=== PATIENT | male | born 1935 | race Caucasian/White ===

== ENCOUNTER 2022-09-05 12:17 | Inpatient (IN) | payer MEDICARE, MEDICAID, SELFPAY ==
--- NOTE | 2022-09-05 | ECG_ITS ---
Test Reason : afib Blood Pressure : / mmHG Vent. Rate : 134 BPM Atrial Rate : 000 BPM P-R Int : 000 ms QRS Dur : 078 ms QT Int : 304 ms P-R-T Axes : 000 053 -53 degrees QTc Int : 453 ms Atrial fibrillation with rapid ventricular response ST depression, consider subendocardial injury Nonspecific T wave abnormality Abnormal ECG When compared with ECG of 05-SEP-2022 13:58, Atrial fibrillation has replaced Sinus rhythm ST now depressed in Inferior leads ST now depressed in Lateral leads Nonspecific T wave abnormality now evident in Lateral leads Referred By: Mark Tuttle Electronically Signed By:BI ROGEL MD
--- NOTE | ~2022-09-05 | XR_ITS ---
EXAMINATION: XR CHEST CLINICAL INFORMATION: Worsening shortness of breath. COMPARISON: None TECHNIQUE: Frontal view of the chest was obtained. FINDINGS: Mild patchy opacities are seen in the right mid and lower lung irizarry. The left lung is clear. The heart and mediastinal structures are unremarkable. XR/XR chest 1V IMPRESSION: Right mid and lower lung infiltrates.
[2022-09-05 12:24] VITALS: BP 136/90; PULSE 100; O2SAT 93
--- NOTE | 2022-09-05 12:36 | ECG_ITS ---
Test Reason : WEAKNESS Blood Pressure : / mmHG Vent. Rate : 095 BPM Atrial Rate : 095 BPM P-R Int : 116 ms QRS Dur : 070 ms QT Int : 356 ms P-R-T Axes : 080 043 031 degrees QTc Int : 447 ms Normal sinus rhythm Nonspecific ST and T wave abnormality Abnormal ECG No previous ECGs available Referred By: Sandie Merrill Electronically Signed By:
--- NOTE | 2022-09-05 12:38 | ED_ITS ---
HPI - General Adult General Chief complaint: General Medical Stated complaint: SOB 84% RA,HOT TO TOUCH PER EMS Source: EMS Mode of arrival: EMS Limitations: other (Dementia) History of Present Illness HPI narrative: Patient comes to the emergency rooms [facility] via ambulance. Staff reports that the patient has been having fever, worsening shortness of breath. Patient tested positive for COVID 8 days ago, and subsequently developed pneumonia. Since yesterday, patient has been taking ceftriaxone, azithromycin and dexamethasone. Today, patient's oxygen saturation was 84%. Patient seems to be more combative than usual. Patient is on nasal cannula because of the pneumonia. However, patient keeps pulling his off O2 off. Patient is unable to give any history due to dementia. Related Data Home Medications Medication Instructions Recorded Confirmed acetaminophen 325 mg tablet 325 mg PO TID PRN Pain 09/05/22 09/05/22 amlodipine 2.5 mg tablet 2.5 mg PO DAILY 09/05/22 09/05/22 azithromycin 250 mg tablet 250 mg PO DAILY 09/05/22 09/05/22 bisacodyl 10 mg rectal suppository 10 mg GA 1XD PRN Constipation 09/05/22 09/05/22 (Dulcolax (bisacodyl)) ceftriaxone 1 gram solution for 1 g IM DAILY 09/05/22 09/05/22 injection cholecalciferol (vitamin D3) 50 50 mcg PO DAILY 09/05/22 09/05/22 mcg (2,000 unit) capsule (Vitamin D3) dexamethasone 2 mg tablet 5 mg PO 1XD PRN Shortness Of Breath 09/05/22 09/05/22 emollient combination no.114 1 appl topical TID PRN Dry Skin 09/05/22 09/05/22 magnesium hydroxide 400 mg/5 mL 2,400 mg PO DAILY PRN Constipation 09/05/22 09/05/22 oral suspension (Milk of Magnesia) melatonin 3 mg tablet 3 mg PO BEDTIME PRN Insomnia 09/05/22 09/05/22 sodium phosphates 19 gram-7 118 ml GA DAILY PRN Constipation 09/05/22 09/05/22 gram/118 mL enema (Fleet Enema) thiamine HCl (vitamin B1) 100 mg 100 mg PO DAILY 09/05/22 09/05/22 tablet Allergies Allergy/AdvReac Type Severity Reaction Status Date / Time Unable to Assess Allergy Verified 09/05/22 12:32 Review of Systems Review of Systems: Yes Unobtainable due to mental condition PMFSH Past Medical History Medical History CKD (chronic kidney disease), stage I COPD (chronic obstructive pulmonary disease) Dementia Hyperlipidemia Social History Social History Advance Directives: Yes Advance Directives on File: Yes Advance Directives Date on File: 09/05/22 Physical Exam ED Vital Signs: Vital Signs - 24 hr 09/05/22 12:49 Temperature 99.1 F Pulse Rate 101 H Respiratory Rate 22 H Blood Pressure 125/72 Pulse Oximetry 86 L Oxygen Delivery Method Room Air BMI result Body Mass Index 16.8 Const Other: Appearance: Alert. Oriented X1. No acute distress. Eyes: Pupils equal, round and reactive to light. ENT: Pharynx normal. Neck: Normal inspection. Neck supple. No lymph nodes noted. No crepitus CVS: Normal heart rate and rhythm. Pulses normal. Normal S1 and S2 Respiratory: No respiratory distress. Breath sounds normal. No Wheezing. No rales Abdomen: Soft and nontender. No rigidity. No distention. Skin: Skin warm and dry. Normal skin color. Normal skin turgor. Extremities: No lower extremity edema. No Lacerations. No Rash Neuro: Oriented X 1. No motor deficit. No sensory deficit. Moving all extremities. No slurred speech. CN 2 through 12 grossly intact Psych: calm, slightly combative but redirectable Course Course Course Narrative: Patient has been on ceftriaxone azithromycin, [facility]. However, seems that they have a hard time keeping his nasal cannula on. Of patient's labs are pending. Patient is a full code per MOLDS form. Patient's white blood cell count is 21.5, likely secondary to daily dexamethasone use. Lactic acid 1.3. No fever, normal blood pressure, sepsis not suspected. Patient's sodium is 160. When patient arrived, he looked very dry, labs were not available, he received 2 L of normal saline, now changed to D5W at 50 mL/hour. Creatinine 1.65 likely secondary to dehydration. Troponin slightly bumped at 41.6, patient does not seem to have any chest pain, patient is poor historian, there are nonspecific ST depressions in leads V4 through V6, less than 1 mm, nonspecific, ACS not suspected. There are no previous EKGs for comparison. Medical Decision Making Lab Data Result diagrams: 09/05/22 13:38 09/05/22 19:09 Labs: Lab Results 09/05/22 09/05/22 09/05/22 Range/Units 13:38 13:38 13:38 WBC 21.5 H (4.8-10.8) X10*3/uL RBC 4.06 L (4.60-5.80) X10*6/uL Hgb 12.6 L (14.0-18.0) g/dl Hct 37.1 L (42.0-52.0) % MCV 91.4 (80.0-98.0) fL MCH 31.0 (27.0-33.0) pg MCHC 34.0 (31.0-36.0) g/dl RDW 13.1 (11.0-16.0) % Plt Count 437 H (160-400) X10*3/uL MPV 10.4 (9.4-12.4) fL Immature Gran % (Auto) 1.8 H (0.0-0.4) % Neut % (Auto) 87.3 H (45-73) % Lymph % (Auto) 2.7 L (20-40) % [place] % (Auto) 7.9 (2-11) % Eos % (Auto) 0.0 (0-4) % Baso % (Auto) 0.3 (0-2) % Lymph # (Auto) 0.6 L (1.2-4.9) X10*3/uL [place] # (Auto) 1.7 H (0.1-1.2) X10*3/uL Eos # (Auto) 0.0 (0.0-0.4) X10*3/uL Baso # (Auto) 0.1 (0.0-0.2) X10*3/uL Abs Immat Gran (auto) 0.39 H (0.00-0.03) X10*3/uL Absolute Neuts (auto) 18.8 H (2.0-8.3) x10*3/uL Absolute Nucleated RBC 0.000 (0.0-0.012) X10*3/uL Nucleated RBC % (auto) 0.0 (0.0-0.2) /100WBC Smear Tech's Comments VERIFIED PT 14.4 H (10.0-13.1) SEC INR 1.2 H (0.9-1.1) Sodium 160 H* (135-145) mmol/L Potassium 3.5 (3.3-5.1) mmol/L Chloride 118 H (96-108) mmol/L Carbon Dioxide 25 (22-29) mmol/L Anion Gap 20 (12-20) BUN 89 H (9-16) mg/dL Creatinine 1.65 H (0.5-1.4) mg/dL Estim Creat Clear Calc 22.8 Estimated GFR 40 Random Glucose 161 H (60-115) mg/dL Lactic Acid (0.5-2.0) mmol/L Calcium 9.1 (8.4-10.2) mg/dL Total Bilirubin 0.5 (0.0-1.0) mg/dL Direct Bilirubin 0.3 (0.0-0.5) mg/dL AST 17 (5-37) U/L ALT 17 (0-40) U/L Alkaline Phosphatase 113 (39-117) U/L Troponin I High Sens (<3.5-35.0) ng/L B-Natriuretic Peptide (<100) pg/mL Total Protein 6.8 (6.5-8.0) g/dL Albumin 3.6 (3.5-5.0) g/dL COVID-19 ([facility]) (Negative) COVID-19 Clin Com 09/05/22 09/05/22 09/05/22 Range/Units 13:39 13:39 13:46 WBC (4.8-10.8) X10*3/uL RBC (4.60-5.80) X10*6/uL Hgb (14.0-18.0) g/dl Hct (42.0-52.0) % MCV (80.0-98.0) fL MCH (27.0-33.0) pg MCHC (31.0-36.0) g/dl RDW (11.0-16.0) % Plt Count (160-400) X10*3/uL MPV (9.4-12.4) fL Immature Gran % (Auto) (0.0-0.4) % Neut % (Auto) (45-73) % Lymph % (Auto) (20-40) % [place] % (Auto) (2-11) % Eos % (Auto) (0-4) % Baso % (Auto) (0-2) % Lymph # (Auto) (1.2-4.9) X10*3/uL [place] # (Auto) (0.1-1.2) X10*3/uL Eos # (Auto) (0.0-0.4) X10*3/uL Baso # (Auto) (0.0-0.2) X10*3/uL Abs Immat Gran (auto) (0.00-0.03) X10*3/uL Absolute Neuts (auto) (2.0-8.3) x10*3/uL Absolute Nucleated RBC (0.0-0.012) X10*3/uL Nucleated RBC % (auto) (0.0-0.2) /100WBC Smear Tech's Comments PT (10.0-13.1) SEC INR (0.9-1.1) Sodium (135-145) mmol/L Potassium (3.3-5.1) mmol/L Chloride (96-108) mmol/L Carbon Dioxide (22-29) mmol/L Anion Gap (12-20) BUN (9-16) mg/dL Creatinine (0.5-1.4) mg/dL Estim Creat Clear Calc Estimated GFR Random Glucose (60-115) mg/dL Lactic Acid 1.3 (0.5-2.0) mmol/L Calcium (8.4-10.2) mg/dL Total Bilirubin (0.0-1.0) mg/dL Direct Bilirubin (0.0-0.5) mg/dL AST (5-37) U/L ALT (0-40) U/L Alkaline Phosphatase (39-117) U/L Troponin I High Sens 41.6 H (<3.5-35.0) ng/L B-Natriuretic Peptide 117 H (<100) pg/mL Total Protein (6.5-8.0) g/dL Albumin (3.5-5.0) g/dL COVID-19 ([facility]) Positive A (Negative) COVID-19 Clin Com See Note Critical Care Time Critical Care Time Critical Care Time: Yes Total Critical Care Time: 60 Attestation: I have personally provided critical care time. Time includes review of lab data, radiology results, discussion with consultants, and monitoring for potential decompensation. Intervention performed as documented. Discharge Plan Discharge Clinical Impression: Pneumonia, LICHA (acute kidney injury), Acute hypernatremia Patient Disposition: Admitted As Inpatient
[2022-09-05 12:49] VITALS: BP 125/72; PULSE 101; RESP 22; TEMP 37.3; O2SAT 86; BMI 16.8
[2022-09-05] MEDS: levoFLOXacin/D5W 500 MG/100 ML PIGGYBACK 100 MG IV (13:45)
[2022-09-05 13:49] LABS: Basophils Absolute Auto 0.1 X10*3/uL (0.0-0.2); Basophils Percent Auto 0.3 % (0-2); Hematocrit 37.1 % (42.0-52.0); Hemoglobin 12.6 g/dl (14.0-18.0); Imm Gran Abs Auto 0.39 X10*3/uL (0.00-0.03); Imm Gran Pct Auto 1.8 % (0.0-0.4); Lymphocytes Absolute Auto 0.6 X10*3/uL (1.2-4.9); Lymphocytes Percent Auto 2.7 % (20-40); MANUAL DIFF FLAG SCAN; Mean Corpuscular Volume 91.4 fL (80.0-98.0); Mean Platelet Volume 10.4 fL (9.4-12.4); Monocytes Absolute Auto 1.7 X10*3/uL (0.1-1.2); Monocytes Percent Auto 7.9 % (2-11); Neutrophils Absolute Auto 18.8 x10*3/uL (2.0-8.3); Neutrophils Percent Auto 87.3 % (45-73); Platelet Count 437 X10*3/uL (160-400); Red Blood Count 4.06 X10*6/uL (4.60-5.80); Red Cell Distribution Width 13.1 % (11.0-16.0); SCAN SMEAR FLAG 1; White Blood Count 21.5 X10*3/uL (4.8-10.8)
[2022-09-05 13:54] LABS: INTERNATIONAL NORM RATIO 1.2 (0.9-1.1); Prothrombin Time 14.4 SEC (10.0-13.1)
[2022-09-05 13:59] LABS: Lactic Acid 1.3 mmol/L (0.5-2.0)
[2022-09-05] MEDS: 0.9 % Sodium Chloride 1,000 ML 2000 ML IVCONT (13:59)
[2022-09-05 14:03] LABS: COVID-19 Test Positive (Negative)
[2022-09-05 14:10] LABS: B Type Natriuretic Peptide 117 pg/mL (<100); Troponin-I High Sensitivity 41.6 ng/L (<3.5-35.0)
[2022-09-05 14:12] LABS: SLIDE REVIEW VERIFIED
[2022-09-05 14:24] LABS: Alanine Aminotransferase 17 U/L (0-40); Albumin Level 3.6 g/dL (3.5-5.0); Alkaline Phosphatase 113 U/L (39-117); Anion Gap 20 (12-20); Aspartate Amino Transferase 17 U/L (5-37); Bilirubin Direct 0.3 mg/dL (0.0-0.5); Bilirubin Total 0.5 mg/dL (0.0-1.0); Blood Urea Nitrogen 89 mg/dL (9-16); Calcium 9.1 mg/dL (8.4-10.2); Carbon Dioxide 25 mmol/L (22-29); Chloride 118 mmol/L (96-108); Creatinine Clr Calc Pharmacy 22.8; Estimated Glomerular Filt Rate 40; Glucose Random 161 mg/dL (60-115); Potassium 3.5 mmol/L (3.3-5.1); Sodium 160 mmol/L (135-145); Total Protein 6.8 g/dL (6.5-8.0)
--- NOTE | 2022-09-05 14:37 | PHA.MEDREC ---
Pharmacy Consult ? Medication Reconciliation Pharmacy has completed the medication reconciliation. Unable to get list from patient. Used medication list from [facility] to compile list of medications for med rec.
--- NOTE | 2022-09-05 15:53 | P.HPHOSP_ITS ---
History of Present Illness Date of Service: 09/05/22 Chief Complaint: Hypoxia An 87 years old male with PMH of advanced dementia, HTN, COPD, CKD stage 2 who presents to the hospital from nursing facility as a was noted to be febrile with evidence of hypoxia and dyspnea. The patient tested positive for COVID 8 days ago and was noted to develop pneumonia subsequently. Treated with IM ceftriaxone, p.o. azithromycin and dexamethasone with no significant improvement as his O2 saturation dropped down to 80s this morning. EMS brought the patient to the hospital who is nonverbal and unable to provide any meaningful history. In the emergency he was noted to be hypernatremic with acute kidney injury, as elevated troponin and evidence of right middle and lower lobe infiltrate on chest x-ray. Admitted for further evaluation and treatment. Review of Systems Review of Systems: Nonverbal, unable to provide any meaningful history PMFSH Medical History CKD (chronic kidney disease), stage I COPD (chronic obstructive pulmonary disease) Dementia Hyperlipidemia Social History Advance Directives: Yes Advance Directives on File: Yes Advance Directives Date on File: 09/05/22 Meds Allergies Allergy/AdvReac Type Severity Reaction Status Date / Time Unable to Assess Allergy Verified 09/05/22 12:32 Active Medications: Current Medications Dextrose (D5w) 1,000 mls @ 100 mls/hr IVCONT .Q10H [facility] Pharmacy Consult (Consult Rx Perform Med Rec) 1 each MISCELLANE ONCE PRN PRN Reason: Consult order Home Medications Medication Instructions Recorded Confirmed Last Taken Type acetaminophen 325 mg tablet 325 mg PO TID PRN Pain 09/05/22 09/05/22 Unknown History amlodipine 2.5 mg tablet 2.5 mg PO DAILY 09/05/22 09/05/22 09/04/22 History azithromycin 250 mg tablet 250 mg PO DAILY 09/05/22 09/05/22 09/04/22 History bisacodyl 10 mg rectal suppository [address] 1XD PRN Constipation 09/05/22 09/05/22 Unknown History (Dulcolax (bisacodyl)) ceftriaxone 1 gram solution for 1 g IM DAILY 09/05/22 09/05/22 09/04/22 History injection cholecalciferol (vitamin D3) 50 50 mcg PO DAILY 09/05/22 09/05/22 Unknown History mcg (2,000 unit) capsule (Vitamin D3) dexamethasone 2 mg tablet 5 mg PO 1XD PRN Shortness Of Breath 09/05/22 09/05/22 Unknown History emollient combination no.114 1 appl topical TID PRN Dry Skin 09/05/22 09/05/22 Unknown History magnesium hydroxide 400 mg/5 mL 2,400 mg PO DAILY PRN Constipation 09/05/22 09/05/22 Unknown History oral suspension (Milk of Magnesia) melatonin 3 mg tablet 3 mg PO BEDTIME PRN Insomnia 09/05/22 09/05/22 Unknown History sodium phosphates 19 gram-[address] DAILY PRN Constipation 09/05/22 09/05/22 Unknown History gram/118 mL enema (Fleet Enema) thiamine HCl (vitamin B1) 100 mg 100 mg PO DAILY 09/05/22 09/05/22 Unknown History tablet Physical Exam Vital Signs and Narrative: Vital Signs: Last Vital Signs Temp 99.1 F 09/05/22 12:49 Pulse 101 H 09/05/22 12:49 Resp 22 H 09/05/22 12:49 BP 125/72 09/05/22 12:49 Pulse Ox 86 L 09/05/22 12:49 O2 Del Method 09/05/22 12:49 BMI result Body Mass Index 16.8 Const: Other: Constitutional : Alert, not interactive, not following commands, not in distress Neck : Normal inspection, Supple Cardiovascular : RRR, no JVP, no lower extremity edema Respiratory : Decreased bilateral air entry, left basal fine crackles, no wheezes Gastrointestinal: soft, lax, Normal bowel sounds, Non tender Skin : Warm, Dry Neurological : Alert , unable to assess orientation, nonverbal, moving extremities Results Labs CBC and Chem 7: 09/05/22 13:38 09/05/22 13:38 Labs: Laboratory Results - last 24 hr 09/05/22 09/05/22 09/05/22 13:38 13:38 13:38 MCV 91.4 MCH 31.0 MCHC 34.0 RDW 13.1 Plt Count 437 H MPV 10.4 Immature Gran % (Auto) 1.8 H Neut % (Auto) 87.3 H Lymph % (Auto) 2.7 L [place] % (Auto) 7.9 Eos % (Auto) 0.0 Baso % (Auto) 0.3 Lymph # (Auto) 0.6 L [place] # (Auto) 1.7 H Eos # (Auto) 0.0 Baso # (Auto) 0.1 Abs Immat Gran (auto) 0.39 H Absolute Neuts (auto) 18.8 H Absolute Nucleated RBC 0.000 Nucleated RBC % (auto) 0.0 Smear Tech's Comments VERIFIED PT 14.4 H INR 1.2 H Anion Gap 20 Estim Creat Clear Calc 22.8 Estimated GFR 40 Random Glucose 161 H Lactic Acid Calcium 9.1 Total Bilirubin 0.5 Direct Bilirubin 0.3 AST 17 ALT 17 Alkaline Phosphatase 113 Troponin I High Sens B-Natriuretic Peptide Total Protein 6.8 Albumin 3.6 COVID-19 ([facility]) COVID-19 [facility] 09/05/22 09/05/22 09/05/22 13:39 13:39 13:46 MCV MCH MCHC RDW Plt Count MPV Immature Gran % (Auto) Neut % (Auto) Lymph % (Auto) [place] % (Auto) Eos % (Auto) Baso % (Auto) Lymph # (Auto) [place] # (Auto) Eos # (Auto) Baso # (Auto) Abs Immat Gran (auto) Absolute Neuts (auto) Absolute Nucleated RBC Nucleated RBC % (auto) Smear Tech's Comments PT INR Anion Gap Estim Creat Clear Calc Estimated GFR Random Glucose Lactic Acid 1.3 Calcium Total Bilirubin Direct Bilirubin AST ALT Alkaline Phosphatase Troponin I High Sens 41.6 H B-Natriuretic Peptide 117 H Total Protein Albumin COVID-19 ([place]) Positive A COVID-19 Clin [employer] See Note Imaging Radiologist's Impressions: Impressions Chest X-Ray 09/05/22 13:07 IMPRESSION: Right mid and lower lung infiltrates. Assessment and Plan (1) Sepsis: Status: Acute (2) COVID-19 virus infection: Status: Acute (3) Acute respiratory failure with hypoxia: Status: Acute (4) Hypernatremia: Status: Acute (5) Aspiration pneumonia: Status: Acute (6) Acute kidney injury superimposed on CKD: Status: Acute Plan An 87 years old male with PMH of advanced dementia, HTN who presents to the hospital from nursing facility as a was noted to be febrile with evidence of hypoxia and dyspnea. # Acute hypoxic respiratory failure secondary to aspiration pneumonia and COVID- 19 infection # Sepsis secondary to above tachycardia, tachypnea, leukocytosis and source of infection CXR showing evidence of right middle and lower lobes infiltrate Blood culture sent Start broad-spectrum renally adjusted Zosyn Wean oxygen down as tolerated # acute kidney injury on CKD stage 2 2/2 dehydration Creatinine of 1.65 from baseline of around 1, looks prerenal Give IV fluid and monitor response Follow intake and output Follow BMP # hypernatremia secondary to dehydration Sodium of 160 Received 2 L of sodium chloride Start 100 cc D5W and monitor BMP Q 6 with goal of lowering sodium by 8 point during the day # elevated troponin No EKG changes suggestive of ACS , no reported chest pain Pending 2nd troponin Likely demand mediated from hypoxia and sepsis # hypertension Hold amlodipine until sepsis resolves DVT PPX Heparin The patient will need 2. Overnight hospital stay for treatment of sepsis, acute hypoxic failure and hypernatremia requiring IV antibiotics and repeated blood work to prevent possible decompensation to severe sepsis. Quality Stroke Does the patient have a stroke diagnosis?: No VTE Prior VTE?: No VTE Risk Level:: Medical - moderate - high VTE Device Contraindication: Treatment Not Indicated VTE Drug Contraindication: N/A - Med Ordered
[2022-09-05] MEDS: Dextrose 5 % 1,000 ML 100 ML IVCONT (17:09)
[2022-09-05] MEDS: Heparin Sodium,Porcine 5,000 UNIT/ML VIAL 5000 UNIT SUBCUT (17:58)
[2022-09-05] MEDS: Piperacillin Sodium/Tazobactam 3.375 GM in 0.9 % Sodium Chloride 50 ML IV ×2 (17:58→22:22)
[2022-09-05 18:36] LABS: Troponin-I High Sensitivity 35.6 ng/L (<3.5-35.0)
[2022-09-05 18:41] VITALS: BP 125/68; PULSE 146; RESP 28; TEMP 37.3; O2SAT 90
--- NOTE | 2022-09-05 18:50 | PC.NURSE ---
pt HR spiked to tachy 150s - RR high 20s. MD Oakley made aware
[2022-09-05 19:49] LABS: Anion Gap 20 (12-20); Blood Urea Nitrogen 82 mg/dL (9-16); Calcium 8.4 mg/dL (8.4-10.2); Carbon Dioxide 22 mmol/L (22-29); Chloride 121 mmol/L (96-108); Creatinine Clr Calc Pharmacy 26.7; Estimated Glomerular Filt Rate 48; Glucose Random 179 mg/dL (60-115); Potassium 3.6 mmol/L (3.3-5.1); Sodium 158 mmol/L (135-145)
[2022-09-05] MEDS: methylPREDNISolone Sod Succ 40 MG/ML VIAL IVPUSH (20:22)
[2022-09-05 20:38] VITALS: BP 96/56; PULSE 140; RESP 22; TEMP 37.4; O2SAT 91
[2022-09-05 21:41] VITALS: BP 101/57; PULSE 125; RESP 22; O2SAT 91
[2022-09-05 22:14] VITALS: BP 110/68; PULSE 95; RESP 18; TEMP 36.9; O2SAT 93
--- NOTE | 2022-09-05 22:25 | PC.NURSE ---
admitted from the ER to 474, awake restless, alert to his first name , stated that he is in [place]. Uncooperative with care, pulling out his oxygen cannula, Cardiac rhythm NSR 80's. DR Julien was contacted and NS bolus is held by , Cardimattiem IV blous is held by too
[2022-09-06] VITALS: BP 128/61; PULSE 72; RESP 20; TEMP 35.6; O2SAT 93
[2022-09-06] MEDS: Piperacillin Sodium/Tazobactam 3.375 GM in 0.9 % Sodium Chloride 50 ML IV ×4 (05:39→22:53)
[2022-09-06] MEDS: Dextrose 5 % 1,000 ML 100 ML IVCONT (05:39)
[2022-09-06] MEDS: Heparin Sodium,Porcine 5,000 UNIT/ML VIAL 5000 UNIT SUBCUT ×2 (05:46→16:29)
[2022-09-06] MEDS: methylPREDNISolone Sod Succ 40 MG/ML VIAL IVPUSH ×2 (05:47→19:52)
[2022-09-06 06:04] LABS: Hematocrit 36.6 % (42.0-52.0); Hemoglobin 12.3 g/dl (14.0-18.0); Mean Corpuscular HGB Conc 33.6 g/dl (31.0-36.0); Mean Corpuscular Hemoglobin 32.4 pg (27.0-33.0); Mean Corpuscular Volume 96.3 fL (80.0-98.0); Mean Platelet Volume 10.7 fL (9.4-12.4); Platelet Count 388 X10*3/uL (160-400); Red Cell Distribution Width 13.7 % (11.0-16.0); White Blood Count 12.1 X10*3/uL (4.8-10.8)
[2022-09-06 06:23] LABS: Anion Gap 22 (12-20); Blood Urea Nitrogen 83 mg/dL (9-16); Carbon Dioxide 23 mmol/L (22-29); Chloride 118 mmol/L (96-108); Creatinine Clr Calc Pharmacy 23.8; Estimated Glomerular Filt Rate 42; Glucose Random 159 mg/dL (60-115); Potassium 4.3 mmol/L (3.3-5.1); Sodium 159 mmol/L (135-145)
[2022-09-06 08:00] VITALS: BP 121/86; PULSE 82; RESP 16; TEMP 36.6; O2SAT 94
[2022-09-06] MEDS: Dextrose 5 % 1,000 ML 150 ML IVCONT ×2 (10:34→19:52)
[2022-09-06 11:50] VITALS: BP 135/74; PULSE 80; RESP 16; TEMP 36.6; O2SAT 95
[2022-09-06 12:49] LABS: Anion Gap 22 (12-20); Blood Urea Nitrogen 79 mg/dL (9-16); Carbon Dioxide 22 mmol/L (22-29); Chloride 118 mmol/L (96-108); Creatinine Clr Calc Pharmacy 26.3; Estimated Glomerular Filt Rate 47; Glucose Random 141 mg/dL (60-115); Potassium 4.1 mmol/L (3.3-5.1); Sodium 158 mmol/L (135-145)
--- NOTE | 2022-09-06 13:28 | MHC.CM.PN ---
spoke with npts sister who exp-sachinm that pt is a [facility] care [facility] will return when dcd
[2022-09-06 13:48] VITALS: BMI 16.8
--- NOTE | 2022-09-06 13:53 | MHC.CLN ---
PT IS MODERATELY MALNOURISHED PT IS MILDLY DEPLETED SUBCUTANEOUS FAT AND MUSCLE MASS WITH BMI 16.8 WITH CHRONIC POOR PO INTAKE IN ADDITION, PT WITH INCREASED NUTRITION NEEDS R/T DTI CCCYX PT IS CURRENTLY NPO WHEN DIET TO ADVANCE; RECOMMEND ADDING ENSURE TID TO INCREASE KCALS AND PROMOTE WOUND HEALING SUPP TO PROVIDE 1050KCALS, 60G PROTEIN MONITOR PO INTAKE AND WOUND HEALING SEE ALSO FULL CLINICAL NUTRITION ASSESSMENT
--- NOTE | 2022-09-06 15:29 | P.PNIM_ITS ---
Subjective Subjective Date of Service: 09/06/22 Interval History: cc: lethargy interval history:no complaints Cardiovascular Cardiovascular: Reports no additional cardiovascular complaints Respiratory Respiratory: Reports no additional respiratory complaints Physical Exam Vital Signs: Vital Signs: Last Vital Signs Temp 98 F 09/06/22 11:50 Pulse 80 09/06/22 11:50 Resp 16 09/06/22 11:50 BP 135/74 09/06/22 11:50 Pulse Ox 95 09/06/22 11:50 O2 Del Method 09/06/22 11:50 O2 Flow Rate 3 09/05/22 21:41 BMI result Body Mass Index 16.8 General: AO X 1, no acute distress Resp: CTA bilateral, no accessory muscles used CVS: S1,S2,RRR GI: soft, non tender, non distended Neuro: motor grossly intact, alert Psych: appropriate affect, impaired insight Objective Data Active Medications Acetaminophen (Acetaminophen 325 Mg Tablet) 650 mg PO Q6H PRN PRN Reason: Pain, Mild (Pain Scale 1-3) Bisacodyl (Bisacodyl 10 Mg Supp.Rect) 10 mg AR DAILY PRN PRN Reason: CONSTIPATION Heparin Sodium (Porcine) (Heparin Sodium,Porcine 5,000 Unit/Ml Vial) 5,000 unit SUBCUT Q12H [facility] Last Admin: 09/06/22 05:46 Dose: 5,000 unit Documented By: BRYCE Dextrose (D5w) 1,000 mls @ 150 mls/hr IVCONT .Q6H40M [facility] Last Admin: 09/06/22 10:34 Dose: 150 mls/hr Documented By: GAL Piperacillin Sod/Tazobactam (Sod 3.375 gm/ Sodium Chloride) 50 mls @ 100 mls/hr IV Q6H [facility] Last Infusion: 09/06/22 14:55 Dose: 0 mls/hr Documented By: GAL Methylprednisolone Sodium Succinate (Methylprednisolone Sod Succ 40 Mg/Ml Vial) 40 mg IVPUSH Q12H [facility] Last Admin: 09/06/22 05:47 Dose: 40 mg Documented By: BRYCE Multi-Ingred Cream/Lotion/Oil/Oint (Mineral Oil/Petrolatum,White 106 Gm Tube) 1 appl TOPICAL TID PRN PRN Reason: Dry Skin Ondansetron HCl (Ondansetron Hcl 4 Mg/2 Ml Vial) 4 mg IVPUSH Q8H PRN PRN Reason: Nausea and Vomiting Pharmacy Consult (Consult Rx Perform Med Rec) 1 each MISCELLANE ONCE PRN PRN Reason: Consult order Labs CBC & Chem 7: 09/06/22 05:52 09/06/22 12:12 Labs: Laboratory Results - last 24 hr 09/05/22 09/05/22 09/06/22 18:11 19:09 05:52 MCV MCH MCHC RDW Plt Count MPV Absolute Nucleated RBC Nucleated RBC % (auto) Anion Gap 20 22 H Estim Creat Clear Calc 26.7 23.8 Estimated GFR 48 42 Random Glucose 179 H 159 H Calcium 8.4 D 9.0 D Troponin I High Sens 35.6 H 09/06/22 09/06/22 05:52 12:12 MCV 96.3 MCH 32.4 MCHC 33.6 RDW 13.7 Plt Count 388 MPV 10.7 Absolute Nucleated RBC 0.000 Nucleated RBC % (auto) 0.0 Anion Gap 22 H Estim Creat Clear Calc 26.3 Estimated GFR 47 Random Glucose 141 H Calcium 9.0 Troponin I High Sens Assessment and Plan (1) Acute hypernatremia: Status: Acute Plan 87M with past medical history of advanced Alzheimer's dementia, hypertension, presented with fever, altered mental status Sepsis, metabolic encephalopathy, acute hypoxic respiratory failure secondary to COVID-19 with superimposed bacterial pneumonia Continue Zosyn Follow-up cultures IV steroids Severe hypernatremia also contributing to metabolic encephalopathy likely due to COVID D5W, monitor Acute kidney injury Prerenal, improving with IV fluids, continue to monitor Hypertension Holding amlodipine for relative hypotension DVT prophylaxis with heparin Full code reason for continued hospitalization:severe hypernatremia needing ivf Quality Stroke Does the patient have a stroke diagnosis?: No VTE Prior VTE?: No VTE Risk Level:: Medical - moderate - high VTE Device Contraindication: Treatment Not Indicated VTE Drug Contraindication: N/A - Med Ordered
[2022-09-06 16:00] VITALS: BP 140/80; PULSE 76; RESP 18; TEMP 36.6; O2SAT 96
--- NOTE | 2022-09-06 16:40 | MHC.SL.SWA ---
Addendum entered and electronically signed by Eve Stevens MA, CCC-TELEPHONE CLEANER 09/06/22 16:57: D.S. Original Note: Risk of Aspiration Due to: Lethargy Neurological Condition History of Pneumonia Reduced Cognition Dysphasia Diet Status: No Change Recommend continue with NPO at this time d/t lack of participation, cognitive status, and insufficient trials during bedside swallow evaluation. Liquid Consistency and Strategies for Safe Swallow: Liquid Intake Recommendation: NPO Solid Food Consistency: Dietary Recommendations: NPO Oral Medication Intake: NPO Please contact the pharmacy regarding appropriate crushable or liquid drug formulations that are available whenever modified delivery is recommended. Compensatory Strategies and Precautions to be Taken for Safe Swallow: Supervision While Eating and Drinking for Safe Swallow: PO with TELEPHONE CLEANER Recommendation for Speech: Further Testing Needed Inpatient Speech Therapy Pt seen for bedside swallow evaluation this afternoon. Pt was sleeping upon arrival and awoke to verbal stimuli. TELEPHONE CLEANER assisted pt to sit upright. TELEPHONE CLEANER attempted to provide oral care d/t NPO status at least 24 hours. Pt allowed pt to enter oral cavity with swab momentarily; proceeded to suck on swab and spit it out. Pt stated no and used his hand to push TELEPHONE CLEANER away with any subsequent attempts. TELEPHONE CLEANER could visualize secretions from roof of mouth; unable to reach w/ swab d/t pt refusal. Pt refused most attempts at PO trials including ice chips, trace amounts of water via swab, water via teaspoon. Pt shook his head up and down when offered apple sauce. Pt took small 1/4 teaspoon bite of applesauce off the spoon. Observed complete labial seal and ability to strip food from spoon. TELEPHONE CLEANER attempted to palpate. TELEPHONE CLEANER informed pt what she was going to do; pt grimaced then pushed TELEPHONE CLEANER's hand away. Pt refused additional applesauce. Pt offered water for a second time and again refused. Pt accepted bite of pudding stripping about 1/2 the content from the spoon. Pt again informed pt about palpation and pt did not push or pull away. Upon palpation, pt presents with timely elevation. Unable to determine if elevation was complete or incomplete d/t pt's chin tucked positioning. Recommend pt continue NPO pending re-evaluation by TELEPHONE CLEANER d/t lack of participation, insufficient trials, and pt's cognitive status. Update sent to RANCHO, RN, and via [employer]. Unclaimed Property Officer Clinican/Clinical Fellow: Yes: Ragini Schumacher M.A., CF-TELEPHONE CLEANER Supervisory Statement: I have reviewed and agree with the student/clinical fellow's documentation: Speech Language Pathologist:
[2022-09-06 20:00] VITALS: BP 140/65; PULSE 67; RESP 20; TEMP 37; O2SAT 90
[2022-09-07] MEDS: Dextrose 5 % 1,000 ML 150 ML IVCONT ×3 (00:33→12:48)
[2022-09-07 03:20] VITALS: BP 111/54; PULSE 49; RESP 18; TEMP 36.6; O2SAT 92
[2022-09-07] MEDS: Piperacillin Sodium/Tazobactam 3.375 GM in 0.9 % Sodium Chloride 50 ML IV ×4 (03:39→21:47)
[2022-09-07] MEDS: Heparin Sodium,Porcine 5,000 UNIT/ML VIAL 5000 UNIT SUBCUT ×2 (03:40→15:25)
[2022-09-07] MEDS: methylPREDNISolone Sod Succ 40 MG/ML VIAL IVPUSH ×2 (06:09→19:49)
[2022-09-07 07:56] VITALS: BP 135/82; PULSE 66; RESP 20; TEMP 36.2; O2SAT 94
[2022-09-07 08:22] LABS: Hematocrit 32.2 % (42.0-52.0); Hemoglobin 10.7 g/dl (14.0-18.0); Mean Corpuscular HGB Conc 33.2 g/dl (31.0-36.0); Mean Corpuscular Hemoglobin 30.8 pg (27.0-33.0); Mean Corpuscular Volume 92.8 fL (80.0-98.0); Platelet Count 368 X10*3/uL (160-400); Red Blood Count 3.47 X10*6/uL (4.60-5.80); Red Cell Distribution Width 13.2 % (11.0-16.0); White Blood Count 11.3 X10*3/uL (4.8-10.8)
[2022-09-07 08:46] LABS: Anion Gap 19 (12-20); Blood Urea Nitrogen 64 mg/dL (9-16); Calcium 8.3 mg/dL (8.4-10.2); Carbon Dioxide 22 mmol/L (22-29); Chloride 113 mmol/L (96-108); Creatinine Clr Calc Pharmacy 30.1; Estimated Glomerular Filt Rate 55; Glucose Fasting 193 mg/dL (60-99); Potassium 3.6 mmol/L (3.3-5.1); Sodium 150 mmol/L (135-145)
--- NOTE | 2022-09-07 09:15 | P.CDIC_ITS ---
CDI Concurrent Query Documentation Clarification: PHYSICIAN'S DOCUMENTATION REQUEST Date of Query: 09/07/2215 Patient Name: Mayito Smith Admit Date: 09/05/22 Dear Doctor, A review of the medical record indicates additional documentation may be needed. Please review below and update the documentation accordingly. Clinical Indicators Risk Factors/Clinical Indicators/Treatments Nutrition notes patient is moderately malnourished with BMI of 16.8 mildly depleted subcutaneous fat and muscle mass. NPO, recommend Ensure when diet advances. ASPEN Criteria* Acute Illness Chronic Illness Clinical Characteristic Non-Severe (2 or more criteria present) Severe (2 or more criteria present) Non-Severe (2 or more criteria present) Severe (2 or more criteria present) Energy Intake <75% for >7 days <=50% for >=5 days <75% for >=1 month <=75% for >=1 month Weight Loss 1 week 1 ? 2% >2% N/A N/A 1 month 5% >5% 5% >5% 3 months 7.5 % >7.5% 7.5% >7.5% 6 months N/A N/A 10% >10% 1 year N/A N/A 20% >20% Body Fat Mild Moderate Mild Severe Muscle Mass Mild Moderate Mild Severe Fluid Accumulation Mild Moderate to Severe Mild Severe Reduced Medical Affairs Specialist Strength N/A Measurably Reduced N/A Measurably Reduced *[facility] Hospitalist, 2017 Based on the above, which of the following most accurately represents the patient's nutritional status? * Malnutrition (specify if mild, moderate, or severe) * Protein calorie malnutrition (specify if mild, moderate, or severe) * No nutritional deficiency * Other (please specify): * Unable to determine Use of terms such as suspected, likely, concern for, or probable (associated with a specific diagnosis that is being evaluated, monitored, or treated as if it exists) are acceptable and can be coded in the inpatient setting, when documented at the time of discharge. Thank you, Rand Farr [facility], CDIS Extension: [phone] Please use your independent medical judgment in providing your response. THIS QUERY IS PART OF THE PERMANENT MEDICAL RECORD Provider Response: Moderate Protein-Calorie Malnutrition
--- NOTE | 2022-09-07 11:20 | MHC.SL.SWA ---
Speech Pathologist Impression: Risk of Aspiration Due to: Lethargy Neurological Condition History of Pneumonia Reduced Cognition Dysphasia Diet Status: PUREE (NDD1) with THIN liquids, Pills crushed in puree. Patient requires 1-1 feed w/ management of behaviors, aspiration precautions apply. Liquid Consistency and Strategies for Safe Swallow: Liquid Intake Recommendation: Thin Liquid Intake Strategies: Small Sips No Straws Solid Food Consistency: Dietary Recommendations: Pureed (NDD1) Additional Modifications to Solid Foods: Oral Medication Intake: Crushed with Puree Please contact the pharmacy regarding appropriate crushable or liquid drug formulations that are available whenever modified delivery is recommended. Compensatory Strategies and Precautions to be Taken for Safe Swallow: Sitting Upright (90 deg) No Straw Liquids from Cup Small Bites and Sips Alternate Liquids/Solids Rate of Ingestion Change Supervision While Eating and Drinking for Safe Swallow: Total Assistance (1:1) Foods to Avoid: Sticky or congealed purees. Swallowing Recommended Treatments: Compens. Strategy Educat. Recommendation for Speech Inpatient Speech Therapy Comment: Pt seen for repeat assessment this a.m. as on 09/06/22 initial assessment patient had been minimally cooperative, and as a result not advanced to a diet. Pt throughout this a.m. assessment was minimally cooperative, refused most offers of liquid and food, required persistence and assistance so that he could self administer food and liquid (patient waved and swatted at any attempts to administer food by other). ASH HANDLER unable to palpate any swallow, again as patient would swat at hand and become annoyed. On first attempt of cup sip of water, self administered, patient lost 1/2 of bolus on sip, falling to chest, which cause patient to become aggravated/annoyed. On first attempt of puree, patient refused spoon, attempted to use pudding cup to drink without success. Pt given pudding cup of nectar thick liquid, with patient taking small sip, producing a prolonged oral phase, w/ swallow after moderate delay, then rejecting/refusing any additional sips. Pt offered a variety of soft/puree solid, with patient eventually accepting lemon sherbet by self administered spoon full. On sherbet, patient produced a mildy disorganized, prolonged oral phase, mild delay initiating swallow, no clinical signs of aspiration on three presentations. Pt then accepted self administered cup sips of water, improved labial seal on cup, improved management of sip, timely oral phase and timely swallow observed, no clinical signs of aspiration on two trials. Patients baseline is PUREE (NDD1) with THIN liquids, Pills crushed in puree. Recommend START on these diet consistencies, with patient requiring a 1-1 feed, with careful supervision and encouragement, w/ aspiration precautions applied. Patient prefers to self administer food, but needs full assistance with navigating cup sips, having adequate amount of food on utensil before bringing to mouth, etc. Patient is also resistant and may refuse, many need multiple attempts to take food or liquid. MD/RD notified by secure text of recommendations, discussed with nursing in person. Frequency/Duration: Date Range for Service Req: Timeline to reassess: Canceling And Cutting Control Clerk Clinican/Clinical Fellow: No Supervisory Statement: I have reviewed and agree with the student/clinical fellow's documentation: N/A Speech Language Pathologist: Krystal Mathur M.A., CCC-ASH HANDLER
[2022-09-07 11:27] VITALS: BP 147/63; PULSE 67; RESP 20; TEMP 36.3; O2SAT 94
--- NOTE | 2022-09-07 11:42 | HO.PM.IMPN ---
Subjective Subjective Date of Service: 09/07/22 Interval History: cc: lethargy interval history:no complaints Cardiovascular Cardiovascular: Reports no additional cardiovascular complaints Respiratory Respiratory: Reports no additional respiratory complaints Physical Exam Vital Signs: Vital Signs: Last Vital Signs Temp 97.3 F 09/07/22 11:27 Pulse 67 09/07/22 11:27 Resp 20 09/07/22 11:27 BP 147/63 H 09/07/22 11:27 Pulse Ox 94 09/07/22 11:27 O2 Del Method 09/07/22 11:27 O2 Flow Rate 3 09/05/22 21:41 BMI result Body Mass Index 16.8 General: AO X 1, no acute distress Resp: CTA bilateral, no accessory muscles used CVS: S1,S2,RRR GI: soft, non tender, non distended Neuro: motor grossly intact, alert Psych: appropriate affect, impaired insight skin: coccyx DTI Objective Data Active Medications Acetaminophen (Acetaminophen 325 Mg Tablet) 650 mg PO Q6H PRN PRN Reason: Pain, Mild (Pain Scale 1-3) Bisacodyl (Bisacodyl 10 Mg Supp.Rect) 10 mg MD DAILY PRN PRN Reason: CONSTIPATION Heparin Sodium (Porcine) (Heparin Sodium,Porcine 5,000 Unit/Ml Vial) 5,000 unit SUBCUT Q12H [facility] Last Admin: 09/07/22 03:40 Dose: 5,000 unit Documented By: TREVOR Dextrose (D5w) 1,000 mls @ 150 mls/hr IVCONT .Q6H40M [facility] Last Admin: 09/07/22 05:47 Dose: 150 mls/hr Documented By: TREVOR Piperacillin Sod/Tazobactam (Sod 3.375 gm/ Sodium Chloride) 50 mls @ 100 mls/hr IV Q6H [facility] Last Infusion: 09/07/22 10:09 Dose: 0 mls/hr Documented By: DAVONORRDenilson Methylprednisolone Sodium Succinate (Methylprednisolone Sod Succ 40 Mg/Ml Vial) 40 mg IVPUSH Q12H [facility] Last Admin: 09/07/22 06:09 Dose: 40 mg Documented By: TREVOR Multi-Ingred Cream/Lotion/Oil/Oint (Mineral Oil/Petrolatum,White 106 Gm Tube) 1 appl TOPICAL TID PRN PRN Reason: Dry Skin Ondansetron HCl (Ondansetron Hcl 4 Mg/2 Ml Vial) 4 mg IVPUSH Q8H PRN PRN Reason: Nausea and Vomiting Pharmacy Consult (Consult Rx Perform Med Rec) 1 each MISCELLANE ONCE PRN PRN Reason: Consult order Labs CBC & Chem 7: 09/07/22 08:04 09/07/22 08:04 Labs: Laboratory Results - last 24 hr 09/06/22 09/07/22 09/07/22 12:12 08:04 08:04 MCV 92.8 MCH 30.8 MCHC 33.2 RDW 13.2 Plt Count 368 MPV 11.0 Absolute Nucleated RBC 0.000 Nucleated RBC % (auto) 0.0 Anion Gap 22 H 19 Estim Creat Clear Calc 26.3 30.1 Estimated GFR 47 55 Random Glucose 141 H Fasting Glucose 193 H Calcium 9.0 8.3 L D Microbiology Microbiology Results: Microbiology 09/05/22 13:39 Blood Culture - Preliminary Blood - Venous Staphylococcus species 09/05/22 13:39 Blood Culture - Preliminary Blood - Venous No growth after 24 hours. Assessment and Plan (1) Acute hypernatremia: Status: Acute Plan 87M with past medical history of advanced Alzheimer's dementia, hypertension, presented with fever, altered mental status Sepsis, metabolic encephalopathy, acute hypoxic respiratory failure secondary to COVID-19 with superimposed bacterial pneumonia Continue Zosyn Follow-up cultures - gram stain with staph species - suspect contaminant, follow up final IV steroids Severe hypernatremia also contributing to metabolic encephalopathy likely due to COVID improving, continue D5W, monitor Acute kidney injury Prerenal, improving with IV fluids, continue to monitor coccyx DTI local care dysphagia CARD LACER JACQUARD appreciated NDD1 solids, thin liquids Hypertension Holding amlodipine for relative hypotension DVT prophylaxis with heparin Full code reason for continued hospitalization:severe hypernatremia needing ivf Quality Stroke Does the patient have a stroke diagnosis?: No VTE Prior VTE?: No VTE Risk Level:: Medical - moderate - high VTE Device Contraindication: Treatment Not Indicated VTE Drug Contraindication: N/A - Med Ordered
[2022-09-07 15:50] VITALS: BP 129/60; PULSE 46; RESP 19; TEMP 36.8
[2022-09-07 19:18] VITALS: BP 134/49; PULSE 52; RESP 19; TEMP 36.3
[2022-09-07] MEDS: Dextrose 5 % 1,000 ML 80 ML IVCONT (21:47)
[2022-09-08] VITALS (7 sets, daily range): BP systolic 117–157; BP diastolic 47–80; PULSE 46–64; RESP 14–20; TEMP 36–36.9; O2SAT 92–97
[2022-09-08] MEDS: Insulin Lispro 100 UNIT/ML 3 ML VIAL SUBCUT (03:05)
[2022-09-08] MEDS: Heparin Sodium,Porcine 5,000 UNIT/ML VIAL 5000 UNIT SUBCUT ×2 (03:05→15:48)
[2022-09-08] MEDS: Piperacillin Sodium/Tazobactam 3.375 GM in 0.9 % Sodium Chloride 50 ML IV (03:20)
[2022-09-08] MEDS: methylPREDNISolone Sod Succ 40 MG/ML VIAL IVPUSH (06:18)
--- NOTE | 2022-09-08 09:17 | P.PNIM_ITS ---
Subjective Subjective Date of Service: 09/08/22 Interval History: cc: lethargy interval history:no complaints Cardiovascular Cardiovascular: Reports no additional cardiovascular complaints Respiratory Respiratory: Reports no additional respiratory complaints Physical Exam Vital Signs: Vital Signs: Last Vital Signs Temp 97.5 F 09/08/22 07:18 Pulse 51 09/08/22 07:18 Resp 18 09/08/22 07:18 BP 136/65 09/08/22 07:18 Pulse Ox 96 09/08/22 07:18 O2 Del Method 09/08/22 07:18 O2 Flow Rate 3 09/05/22 21:41 FiO2 96 09/07/22 19:18 BMI result Body Mass Index 16.8 General: AO X 1, no acute distress Resp: CTA bilateral, no accessory muscles used CVS: S1,S2,RRR GI: soft, non tender, non distended Neuro: motor grossly intact, alert Psych: appropriate affect, impaired insight skin: coccyx DTI Objective Data Active Medications Acetaminophen (Acetaminophen 325 Mg Tablet) 650 mg PO Q6H PRN PRN Reason: Pain, Mild (Pain Scale 1-3) Bisacodyl (Bisacodyl 10 Mg Supp.Rect) 10 mg [place] DAILY PRN PRN Reason: CONSTIPATION Dextrose (Dextrose 50 % 25 Gm/50 Ml Syringe) 25 gm IVPUSH Q15M PRN; Protocol PRN Reason: per Hypoglycemia Standing Ord. Glucose (Glucose Gel 15 Gm Gel..Gram.) 15 gm PO Q15M PRN; Protocol PRN Reason: per Hypoglycemia Standing Ord. Heparin Sodium (Porcine) (Heparin Sodium,Porcine 5,000 Unit/Ml Vial) 5,000 unit SUBCUT Q12H [facility] Last Admin: 09/08/22 03:05 Dose: 5,000 unit Documented By: TREVOR Dextrose (D5w) 1,000 mls @ 80 mls/hr IVCONT .[id number] [facility] Last Admin: 09/07/22 21:47 Dose: 80 mls/hr Documented By: TREVOR Cefazolin Sodium/Dextrose (Ancef) 2 gm in 50 mls @ 100 mls/hr IV Q8H [facility] Insulin Human Lispro (Insulin Lispro 100 Unit/Ml 3 Ml Vial) 0 unit SUBCUT Q6H [facility]; Protocol Stop: 09/08/22 20:13 Last Admin: 09/08/22 03:05 Dose: 2 unit Documented By: TREVOR Methylprednisolone Sodium Succinate (Methylprednisolone Sod Succ 40 Mg/Ml Vial) 40 mg IVPUSH Q12H [facility] Last Admin: 09/08/22 06:18 Dose: 40 mg Documented By: TREVOR Multi-Ingred Cream/Lotion/Oil/Oint (Mineral Oil/Petrolatum,White 106 Gm Tube) 1 appl TOPICAL TID PRN PRN Reason: Dry Skin Ondansetron HCl (Ondansetron Hcl 4 Mg/2 Ml Vial) 4 mg IVPUSH Q8H PRN PRN Reason: Nausea and Vomiting Pharmacy Consult (Consult Rx Perform Med Rec) 1 each MISCELLANE ONCE PRN PRN Reason: Consult order Labs CBC & Chem 7: 09/07/22 08:04 09/07/22 08:04 Microbiology Microbiology Results: Microbiology 09/05/22 13:39 Blood Culture - Final Blood - Venous Staphylococcus aureus 09/05/22 13:39 Blood Culture - Preliminary Blood - Venous No growth after 48 hours. Assessment and Plan (1) Acute hypernatremia: Status: Acute Plan 87M with past medical history of advanced Alzheimer's dementia, hypertension, presented with fever, altered mental status Sepsis, metabolic encephalopathy, acute hypoxic respiratory failure secondary to COVID-19 with superimposed bacterial pneumonia and MSSA bacteremia will change to ancef Follow-up cultures, echo, ID Severe hypernatremia also contributing to metabolic encephalopathy likely due to COVID improving, continue D5W, monitor Acute kidney injury Prerenal, improving with IV fluids, continue to monitor coccyx DTI local care dysphagia FAMILY SERVICES SPECIALIST appreciated NDD1 solids, thin liquids Hypertension Holding amlodipine for relative hypotension DVT prophylaxis with heparin Full code reason for continued hospitalization:severe hypernatremia needing ivf, bacteremia Quality Stroke Does the patient have a stroke diagnosis?: No VTE Prior VTE?: No VTE Risk Level:: Medical - moderate - high VTE Device Contraindication: Treatment Not Indicated VTE Drug Contraindication: N/A - Med Ordered
[2022-09-08 10:34] LABS: Hematocrit 31.1 % (42.0-52.0); Hemoglobin 10.6 g/dl (14.0-18.0); Mean Corpuscular HGB Conc 34.1 g/dl (31.0-36.0); Mean Corpuscular Hemoglobin 31.1 pg (27.0-33.0); Mean Corpuscular Volume 91.2 fL (80.0-98.0); Mean Platelet Volume 10.8 fL (9.4-12.4); Platelet Count 353 X10*3/uL (160-400); Red Blood Count 3.41 X10*6/uL (4.60-5.80); Red Cell Distribution Width 12.5 % (11.0-16.0); White Blood Count 15.6 X10*3/uL (4.8-10.8)
[2022-09-08 10:47] LABS: Anion Gap 18 (12-20); Blood Urea Nitrogen 43 mg/dL (9-16); Carbon Dioxide 20 mmol/L (22-29); Chloride 109 mmol/L (96-108); Creatinine Clr Calc Pharmacy 40.5; Estimated Glomerular Filt Rate > 60; Glucose Fasting 110 mg/dL (60-99); Sodium 143 mmol/L (135-145)
[2022-09-08] MEDS: Dextrose 5 % 1,000 ML 80 ML IVCONT (11:07)
[2022-09-08] MEDS: ceFAZolin Sodium/Dextrose,Iso 2 GM/50 ML PIGGYBACK IV ×2 (11:07→17:51)
[2022-09-08 11:28] LABS: Glucose, Whole Blood 109 mg/dL (60-115)
--- NOTE | 2022-09-08 13:13 | MHC.SL.SWA ---
Risk of Aspiration Due to: Lethargy Neurological Condition History of Pneumonia Reduced Cognition Dysphasia Diet Status: PUREE (NDD1) with THIN liquids, Pills crushed in puree. Patient requires 1-1 feed w/ management of behaviors, aspiration precautions apply. Liquid Consistency and Strategies for Safe Swallow: Liquid Intake Recommendation: Thin Liquid Intake Strategies: Small Sips No Straws Solid Food Consistency: Dietary Recommendations: Pureed (NDD1) Additional Modifications to Solid Foods: Oral Medication Intake: Crushed with Puree Please contact the pharmacy regarding appropriate crushable or liquid drug formulations that are available whenever modified delivery is recommended. Compensatory Strategies and Precautions to be Taken for Safe Swallow: Sitting Upright (90 deg) No Straw Liquids from Cup Small Bites and Sips Alternate Liquids/Solids Rate of Ingestion Change Supervision While Eating and Drinking for Safe Swallow: Total Assistance (1:1) Foods to Avoid: Sticky or congealed purees. Swallowing Recommended Treatments: Compens. Strategy Educat. Recommendation for Speech: Further Testing Needed Inpatient Speech Therapy Pt seen for bedside dysphagia tx this morning. Pt was asleep upon arrival and awoke to verbal stimuli. UNIT ASSEMBLER assisted pt to sit upright in bed. Pt much more alert, awake, and vocal in comparison with initial UNIT ASSEMBLER evaluation on 09/06. Pt accepted bites of ice cream, pureed clam chowder, and pureed turkey and potato. Minimal oral residue with turkey and potato, cleared with bites of pureed chowder and sips of liquid. Pt did not allow UNIT ASSEMBLER to palpate swallow; tucking his chin, pulling away, and making noises at attempts. Pt tolerated multiple cup sips of water with no overt s/s of aspiration. No change in vocal quality. Pt then had another sip of water via and presented with mildly wet vocal quality. When cued to swallow again, pt's vocal quality returned to baseline. Pt observed to cough 1X teaspoon sip, 1X on controlled cup sips, 1X with straw then stated he did not want any further PO. Unable to trial thickened liquids d/t pt refusal. Recommend pt continue with current recommendations. Per MANAGER CREATIVE and RN, pt has been refusing food and drink consistently, meds given via IV. Pt should not be given PO if presenting in lethargic state. Ensure pt is awake, alert, and agreeable prior to any PO trials. Small sips and bites. Recommend full 1:1 assist feeding. Monitor for s/s of aspiration. Discontinue PO if pt presents as lethargic or if s/s of aspiration are observed. Customer Project Manager Clinican/Clinical Fellow: Yes: Ragini Schumacher M.A., CF-UNIT ASSEMBLER Supervisory Statement: I have reviewed and agree with the student/clinical fellow's documentation: N/A Speech Language Pathologist: Krystal Mathur M.A., [facility]-UNIT ASSEMBLER
--- NOTE | 2022-09-08 14:05 | P.CONCA_ITS ---
History of Present Illness History of Present Illness Date of Service: 09/08/22 Requesting physician: Mark Tuttle Consult reason: other (Bradycardia) Chief complaint: Hypoxia Narrative: I was requested to see Mayito in cardiology consultation today because of noted significant sinus bradycardia along with junctional escape rhythm on cardiac telemetry. Patient was monitored on COVID floor admitted with COVID related pneumonia and secondary infection with Staph and with hypoxic respiratory failure. Patient currently in isolation room. Patient lives with his sister as as per the sister cognitive defect and has got more confused and also has physical disability and she helps him with his daily chores. Nephews and next of kin and healthcare proxy. Patient currently getting treated for hypoxic respiratory failure along with the pneumonia. Patient does not provide any significant complains or history Review of Systems Review of Systems: Yes Unobtainable due to mental status PMFSH Past Medical History Medical History CKD (chronic kidney disease), stage I COPD (chronic obstructive pulmonary disease) Dementia Hyperlipidemia Social History Social History Household Members: Other Housing: Shelter Do you presently have visiting nurse or other home services: No Unable to assess alcohol history related to: Unknown Patient Tobacco Use Status: Tobacco use Unknown Advance Directives Date on File: 09/05/22 service: No Meds Allergies Allergy/AdvReac Type Severity Reaction Status Date / Time Unable to Assess Allergy Verified 09/05/22 12:32 Active Medications: Current Medications Acetaminophen (Acetaminophen 325 Mg Tablet) 650 mg PO Q6H PRN PRN Reason: Pain, Mild (Pain Scale 1-3) Bisacodyl (Bisacodyl 10 Mg Supp.Rect) 10 mg [place] DAILY PRN PRN Reason: CONSTIPATION Dextrose (Dextrose 50 % 25 Gm/50 Ml Syringe) 25 gm IVPUSH Q15M PRN; Protocol PRN Reason: per Hypoglycemia Standing Ord. Glucose (Glucose Gel 15 Gm Gel..Gram.) 15 gm PO Q15M PRN; Protocol PRN Reason: per Hypoglycemia Standing Ord. Heparin Sodium (Porcine) (Heparin Sodium,Porcine 5,000 Unit/Ml Vial) 5,000 unit SUBCUT Q12H [facility] Last Admin: 09/08/22 03:05 Dose: 5,000 unit Cefazolin Sodium/Dextrose (Ancef) 2 gm in 50 mls @ 100 mls/hr IV Q8H [facility] Last Infusion: 09/08/22 12:35 Dose: Infused Dextrose/Sodium Chloride (D51/2ns) 1,000 mls @ 80 mls/hr IVCONT .[id number] [facility] Insulin Human Lispro (Insulin Lispro 100 Unit/Ml 3 Ml Vial) 0 unit SUBCUT Q6H [facility]; Protocol Stop: 09/08/22 20:13 Last Admin: 09/08/22 11:08 Dose: Not Given Multi-Ingred Cream/Lotion/Oil/Oint (Mineral Oil/Petrolatum,White 106 Gm Tube) 1 appl TOPICAL TID PRN PRN Reason: Dry Skin Ondansetron HCl (Ondansetron Hcl 4 Mg/2 Ml Vial) 4 mg IVPUSH Q8H PRN PRN Reason: Nausea and Vomiting Pharmacy Consult (Consult Rx Perform Med Rec) 1 each MISCELLANE ONCE PRN PRN Reason: Consult order Home Medications Medication Instructions Recorded Confirmed Last Taken Type acetaminophen 325 mg tablet 325 mg PO TID PRN Pain 09/05/22 09/05/22 Unknown History amlodipine 2.5 mg tablet 2.5 mg PO DAILY 09/05/22 09/05/22 09/04/22 History azithromycin 250 mg tablet 250 mg PO DAILY 09/05/22 09/05/22 09/04/22 History bisacodyl 10 mg rectal suppository 10 mg [place] 1XD PRN Constipation 09/05/22 09/05/22 Unknown History (Dulcolax (bisacodyl)) ceftriaxone 1 gram solution for 1 g IM DAILY 09/05/22 09/05/22 09/04/22 History injection cholecalciferol (vitamin D3) 50 50 mcg PO DAILY 09/05/22 09/05/22 Unknown History mcg (2,000 unit) capsule (Vitamin D3) dexamethasone 2 mg tablet 5 mg PO 1XD PRN Shortness Of Breath 09/05/22 09/05/22 Unknown History emollient combination no.114 1 appl topical TID PRN Dry Skin 09/05/22 09/05/22 Unknown History magnesium hydroxide 400 mg/5 mL 2,400 mg PO DAILY PRN Constipation 09/05/22 09/05/22 Unknown History oral suspension (Milk of Magnesia) melatonin 3 mg tablet 3 mg PO BEDTIME PRN Insomnia 09/05/22 09/05/22 Unknown History sodium phosphates 19 gram-7 118 ml [place] DAILY PRN Constipation 09/05/22 09/05/22 Unknown History gram/118 mL enema (Fleet Enema) thiamine HCl (vitamin B1) 100 mg 100 mg PO DAILY 09/05/22 09/05/22 Unknown History tablet Physical Exam Vital Signs: Vital Signs: Last Vital Signs Temp 98.1 F 09/08/22 11:34 Pulse 46 L 09/08/22 11:34 Resp 20 09/08/22 11:34 BP 129/47 L 09/08/22 11:34 Pulse Ox 96 09/08/22 11:34 O2 Del Method 09/08/22 11:34 O2 Flow Rate 3 09/05/22 21:41 FiO2 96 09/07/22 19:18 BMI result Body Mass Index 16.8 General: AO X 1, no acute distress Resp: CTA bilateral, no accessory muscles used CVS: S1,S2,RRR GI: soft, non tender, non distended Neuro: motor grossly intact, alert Psych: appropriate affect, impaired insight skin: coccyx DTI Cardio: Rate: bradycardic Objective Labs and Meds Result diagrams: 09/08/22 10:12 09/08/22 10:12 Lab results: Laboratory Results - last 24 hr 09/08/22 09/08/22 09/08/22 10:12 10:12 11:07 WBC 15.6 H RBC 3.41 L Hgb 10.6 L Hct 31.1 L MCV 91.2 MCH 31.1 MCHC 34.1 RDW 12.5 Plt Count 353 MPV 10.8 Absolute Nucleated RBC 0.000 Nucleated RBC % (auto) 0.0 Sodium 143 Potassium 4.0 Chloride 109 H Carbon Dioxide 20 L Anion Gap 18 BUN 43 H Creatinine 0.93 Estim Creat Clear Calc 40.5 Estimated GFR > 60 POC Glucose 109 Fasting Glucose 110 H D Calcium 8.0 L Assessment and Plan (1) Sick sinus syndrome: Status: Acute Patient with significant sinus bradycardia as well as well as junctional rhythm consistent with sick sinus syndrome. Patient is currently not on any rate lowering medications. No obvious etiology for his sinus bradycardia. Check TSH. However currently patient has pneumonia and has staff related infection. Currently hemodynamically stable without any symptoms of hemodynamic compromise. Can continue to monitor on full disclosure telemetry. Discussed with patient's nephew who is the healthcare proxy about need for pacemaker. He is agreeable. He wants to pursue pacemaker placement once patient is cleared from ID perspective. Patient is currently full code and if required the nephew says to pursue with transvenous pacing. There is no indication for transvenous pacing at this point time. Continue supportive care. Continue to avoid rate lowering medications. Will continue to follow with you Procedures Date of Service Date of Service: 09/08/22
--- NOTE | 2022-09-08 14:23 | MHC.CLN ---
F/U PT IS MODERATELY MALNOURISHED SEE ALSO CLINICAL NUTRITION ASSESSMENT DATED 09/08/22 PT IS MILDLY DEPLETED SUBCUTANEOUS FAT AND MUSCLE MASS WITH BMI 16.8 WITH CHRONIC POOR PO INTAKE IN ADDITION, PT WITH INCREASED NUTRITION NEEDS R/T DTI CCCYX DIET ADVANCED TO REGULAR RECOMMEND ADDING ENSURE TID TO INCREASE KCALS AND PROMOTE WOUND HEALING SUPP TO PROVIDE 1050KCALS, 60G PROTEIN MONITOR PO INTAKE AND WOUND HEALING
[2022-09-08] MEDS: Dextrose 5 % and 0.45 % NaCl 1,000 ML 80 ML IVCONT (15:48)
[2022-09-08 16:17] LABS: Glucose, Whole Blood 114 mg/dL (60-115)
[2022-09-08 21:48] LABS: Glucose, Whole Blood 121 mg/dL (60-115)
[2022-09-08] MEDS: Acetaminophen 325 MG TABLET 650 MG PO (23:51)
[2022-09-09] MEDS: ceFAZolin Sodium/Dextrose,Iso 2 GM/50 ML PIGGYBACK IV ×3 (01:16→17:22)
[2022-09-09] MEDS: Heparin Sodium,Porcine 5,000 UNIT/ML VIAL 5000 UNIT SUBCUT ×2 (03:32→17:21)
[2022-09-09 04:00] VITALS: BP 134/63; PULSE 51; RESP 16; TEMP 36.1; O2SAT 96
[2022-09-09] MEDS: Dextrose 5 % and 0.45 % NaCl 1,000 ML 100 ML IVCONT ×2 (05:52→14:44)
[2022-09-09 07:19] VITALS: BP 122/64; PULSE 69; RESP 16; TEMP 36.4; O2SAT 95
[2022-09-09 07:47] LABS: Hematocrit 34.2 % (42.0-52.0); Hemoglobin 11.6 g/dl (14.0-18.0); Mean Corpuscular HGB Conc 33.9 g/dl (31.0-36.0); Mean Corpuscular Hemoglobin 31.2 pg (27.0-33.0); Mean Corpuscular Volume 91.9 fL (80.0-98.0); Mean Platelet Volume 10.6 fL (9.4-12.4); Platelet Count 394 X10*3/uL (160-400); Red Blood Count 3.72 X10*6/uL (4.60-5.80); Red Cell Distribution Width 12.4 % (11.0-16.0); White Blood Count 15.1 X10*3/uL (4.8-10.8)
[2022-09-09 07:51] LABS: Anion Gap 17 (12-20); Blood Urea Nitrogen 33 mg/dL (9-16); Calcium 8.1 mg/dL (8.4-10.2); Carbon Dioxide 23 mmol/L (22-29); Chloride 107 mmol/L (96-108); Creatinine Clr Calc Pharmacy 39.2; Estimated Glomerular Filt Rate > 60; Glucose Fasting 106 mg/dL (60-99); Potassium 3.4 mmol/L (3.3-5.1); Sodium 144 mmol/L (135-145)
[2022-09-09 07:52] LABS: Glucose, Whole Blood 101 mg/dL (60-115)
--- NOTE | 2022-09-09 09:40 | P.PNIM_ITS ---
Subjective Subjective Date of Service: 09/09/22 Interval History: cc: lethargy interval history:no complaints Cardiovascular Cardiovascular: Reports no additional cardiovascular complaints Respiratory Respiratory: Reports no additional respiratory complaints Physical Exam Vital Signs: Vital Signs: Last Vital Signs Temp 97.6 F 09/09/22 07:19 Pulse 69 09/09/22 07:19 Resp 16 09/09/22 07:19 BP 122/64 09/09/22 07:19 Pulse Ox 95 09/09/22 07:19 O2 Del Method 09/09/22 07:19 O2 Flow Rate 3 09/05/22 21:41 FiO2 96 09/07/22 19:18 BMI result Body Mass Index 16.8 General: AO X 1, no acute distress Resp: CTA bilateral, no accessory muscles used CVS: S1,S2,RRR GI: soft, non tender, non distended Neuro: motor grossly intact, alert Psych: appropriate affect, impaired insight skin: coccyx DTI Cardio: Rate: bradycardic Objective Data Active Medications Acetaminophen (Acetaminophen 325 Mg Tablet) 650 mg PO Q6H PRN PRN Reason: Pain, Mild (Pain Scale 1-3) Last Admin: 09/08/22 23:51 Dose: 650 mg Documented By: KATHERYN Bisacodyl (Bisacodyl 10 Mg Supp.Rect) 10 mg [place] DAILY PRN PRN Reason: CONSTIPATION Dextrose (Dextrose 50 % 25 Gm/50 Ml Syringe) 25 gm IVPUSH Q15M PRN; Protocol PRN Reason: per Hypoglycemia Standing Ord. Glucose (Glucose Gel 15 Gm Gel..Gram.) 15 gm PO Q15M PRN; Protocol PRN Reason: per Hypoglycemia Standing Ord. Heparin Sodium (Porcine) (Heparin Sodium,Porcine 5,000 Unit/Ml Vial) 5,000 unit SUBCUT Q12H [facility] Last Admin: 09/09/22 03:32 Dose: 5,000 unit Documented By: KATHERYN Cefazolin Sodium/Dextrose (Ancef) 2 gm in 50 mls @ 100 mls/hr IV Q8H [facility] Last Admin: 09/09/22 09:32 Dose: 100 mls/hr Documented By: JAVID Dextrose/Sodium Chloride (D51/2ns) 1,000 mls @ 80 mls/hr IVCONT .[id number] [facility] Last Admin: 09/09/22 05:52 Dose: 100 mls/hr Documented By: KATHERYN Insulin Human Lispro (Insulin Lispro 100 Unit/Ml 3 Ml Vial) [facility]; Protocol Last Admin: 09/09/22 07:53 Dose: Not Given Documented By: JAVID Non-Admin Reason: No Insulin Coverage Multi-Ingred Cream/Lotion/Oil/Oint (Mineral Oil/Petrolatum,White 106 Gm Tube) 1 appl TOPICAL TID PRN PRN Reason: Dry Skin Ondansetron HCl (Ondansetron Hcl 4 Mg/2 Ml Vial) 4 mg IVPUSH Q8H PRN PRN Reason: Nausea and Vomiting Pharmacy Consult (Consult Rx Perform Med Rec) 1 each MISCELLANE ONCE PRN PRN Reason: Consult order Labs CBC & Chem 7: 09/09/22 07:11 09/09/22 07:11 Labs: Laboratory Results - last 24 hr 09/08/22 09/08/22 09/08/22 10:12 10:12 11:07 MCV 91.2 MCH 31.1 MCHC 34.1 RDW 12.5 Plt Count 353 MPV 10.8 Absolute Nucleated RBC 0.000 Nucleated RBC % (auto) 0.0 Anion Gap 18 Estim Creat Clear Calc 40.5 Estimated GFR > 60 POC Glucose 109 Fasting Glucose 110 H D Calcium 8.0 L 09/08/22 09/08/22 09/09/22 16:13 21:37 07:11 MCV 91.9 MCH 31.2 MCHC 33.9 RDW 12.4 Plt Count 394 MPV 10.6 Absolute Nucleated RBC 0.000 Nucleated RBC % (auto) 0.0 Anion Gap Estim Creat Clear Calc Estimated GFR POC Glucose 114 121 H Fasting Glucose Calcium 09/09/22 09/09/22 07:11 07:22 MCV MCH MCHC RDW Plt Count MPV Absolute Nucleated RBC Nucleated RBC % (auto) Anion Gap 17 Estim Creat Clear Calc 39.2 Estimated GFR > 60 POC Glucose 101 Fasting Glucose 106 H Calcium 8.1 L Microbiology Microbiology Results: Microbiology 09/05/22 13:39 Blood Culture - Final Blood - Venous Staphylococcus aureus Assessment and Plan (1) Acute hypernatremia: Status: Acute Plan 87M with past medical history of advanced Alzheimer's dementia, hypertension, presented with fever, altered mental status Sepsis, metabolic encephalopathy, acute hypoxic respiratory failure secondary to COVID-19 with superimposed bacterial pneumonia and MSSA bacteremia changed to ancef Follow-up cultures, ID Severe hypernatremia also contributing to metabolic encephalopathy likely due to COVID resolved with d5w, changed to maintence d51/2ns, monitor bradycardia likely needs pacer once cultures clear Acute kidney injury resolved coccyx DTI local care dysphagia ANALYTICAL LAB ANALYST appreciated NDD1 solids, thin liquids Hypertension Holding amlodipine for relative hypotension DVT prophylaxis with heparin DNR/DNI reason for continued hospitalization: bacteremia Quality Stroke Does the patient have a stroke diagnosis?: No VTE Prior VTE?: No VTE Risk Level:: Medical - moderate - high VTE Device Contraindication: Treatment Not Indicated VTE Drug Contraindication: N/A - Med Ordered
[2022-09-09 11:14] VITALS: BP 161/71; PULSE 68; RESP 16; TEMP 36.4; O2SAT 95
--- NOTE | 2022-09-09 11:19 | P.PNCA_ITS ---
Subjective Subjective Date of Service: 09/09/22 Principal diagnosis: Sinus bradycardia Interval history: This morning heart rate in the 70s. Patient not have any significant pauses overnight. Heart rate has improved compared to yesterday for no apparent reason. Review of Systems Review of Systems Yes Unobtainable due to mental status Physical Exam Vital Signs: Last Vital Signs Temp 97.5 F 09/09/22 11:14 Pulse 68 09/09/22 11:14 Resp 16 09/09/22 11:14 BP 161/71 H 09/09/22 11:14 Pulse Ox 95 09/09/22 11:14 O2 Del Method 09/09/22 11:14 O2 Flow Rate 3 09/05/22 21:41 FiO2 96 09/07/22 19:18 BMI result Body Mass Index 16.8 General: AO X 1, no acute distress Resp: CTA bilateral, no accessory muscles used CVS: S1,S2,RRR GI: soft, non tender, non distended Neuro: motor grossly intact, alert Psych: appropriate affect, impaired insight skin: coccyx DTI Objective Labs and Meds Result diagrams: 09/09/22 07:11 09/09/22 07:11 Lab results: Laboratory Results - last 24 hr 09/08/22 09/08/22 09/08/22 11:07 16:13 21:37 WBC RBC Hgb Hct MCV MCH MCHC RDW Plt Count MPV Absolute Nucleated RBC Nucleated RBC % (auto) Sodium Potassium Chloride Carbon Dioxide Anion Gap BUN Creatinine Estim Creat Clear Calc Estimated GFR POC Glucose 109 114 121 H Fasting Glucose Calcium 09/09/22 09/09/22 09/09/22 07:11 07:11 07:22 WBC 15.1 H RBC 3.72 L Hgb 11.6 L Hct 34.2 L MCV 91.9 MCH 31.2 MCHC 33.9 RDW 12.4 Plt Count 394 MPV 10.6 Absolute Nucleated RBC 0.000 Nucleated RBC % (auto) 0.0 Sodium 144 Potassium 3.4 Chloride 107 Carbon Dioxide 23 Anion Gap 17 BUN 33 H Creatinine 0.96 Estim Creat Clear Calc 39.2 Estimated GFR > 60 POC Glucose 101 Fasting Glucose 106 H Calcium 8.1 L Progress Note: A&P Assessment and plan (1) Sick sinus syndrome: Status: Acute Assessment and Plan: Sick sinus syndrome, however heart rate is improved without any intervention. At this point time if he remains stable and blood pressure is stable does not require pacing therapy. Continue to monitor full disclosure cardiac telemetry. If rate remains stable without any pauses or significant bradycardia or junctio nal beats can follow clinically. Continue supportive care. Overall prognosis is limited Will sign of the case and please re-consult us if necessary Time Spent With Patient Time: Total time spent is greater than 50% in coordination of care (as documented) at patient's floor/unit and/or counseling patient: Progress Note: Quality Stroke Does the patient have a stroke diagnosis?: No Procedures Date of Service Date of Service: 09/09/22
[2022-09-09 11:29] LABS: Glucose, Whole Blood 105 mg/dL (60-115)
[2022-09-09 16:00] VITALS: BP 147/80; PULSE 77; RESP 16; TEMP 36.6; O2SAT 93
[2022-09-09 16:55] LABS: Glucose, Whole Blood 106 mg/dL (60-115)
[2022-09-09 20:00] VITALS: BP 150/74; PULSE 77; RESP 16; TEMP 37.6; O2SAT 94
[2022-09-09 21:09] LABS: Glucose, Whole Blood 99 mg/dL (60-115)
--- NOTE | 2022-09-09 23:47 | W.PM.IDCN ---
History of Present Illness Data of Consult Service Date: 09/08/22 Requesting physician: Mark Tuttle Primary Care Provider: Parish Guzman MD HPI Reason for consult: bacteremia He presents to hospital with fatigue and weakness for three days. He has COVID positivity. He is not hypoxic. He has 1/2 staph aureus blood He has pneumonia. Review of Systems Review of Systems: Yes all other systems are reviewed and are negative PMFSH Past Medical History Medical History CKD (chronic kidney disease), stage I COPD (chronic obstructive pulmonary disease) Dementia Hyperlipidemia Family History Family history: reviewed and not pertinent Social History Social History Household Members: Other Housing: Residential Do you presently have visiting nurse or other home services: No Unable to assess alcohol history related to: Unknown Patient Tobacco Use Status: Tobacco use Unknown Advance Directives Date on File: 09/05/22 service: No Meds Allergies Allergy/AdvReac Type Severity Reaction Status Date / Time Unable to Assess Allergy Verified 09/05/22 12:32 Active Medications: Current Medications Acetaminophen (Acetaminophen 325 Mg Tablet) 650 mg PO Q6H PRN PRN Reason: Pain, Mild (Pain Scale 1-3) Last Admin: 09/08/22 23:51 Dose: 650 mg Bisacodyl (Bisacodyl 10 Mg Supp.Rect) 10 mg [place] DAILY PRN PRN Reason: CONSTIPATION Dextrose (Dextrose 50 % 25 Gm/50 Ml Syringe) 25 gm IVPUSH Q15M PRN; Protocol PRN Reason: per Hypoglycemia Standing Ord. Glucose (Glucose Gel 15 Gm Gel..Gram.) 15 gm PO Q15M PRN; Protocol PRN Reason: per Hypoglycemia Standing Ord. Heparin Sodium (Porcine) (Heparin Sodium,Porcine 5,000 Unit/Ml Vial) 5,000 unit SUBCUT Q12H [facility] Last Admin: 09/09/22 17:21 Dose: 5,000 unit Cefazolin Sodium/Dextrose (Ancef) 2 gm in 50 mls @ 100 mls/hr IV Q8H [facility] Last Infusion: 09/09/22 18:18 Dose: Infused Dextrose/Sodium Chloride (D51/2ns) 1,000 mls @ 80 mls/hr IVCONT .[id number] [facility] Last Admin: 09/09/22 14:44 Dose: 100 mls/hr Insulin Human Lispro (Insulin Lispro 100 Unit/Ml 3 Ml Vial) 0 unit SUBCUT QIDACHS [facility]; Protocol Last Admin: 09/09/22 21:40 Dose: Not Given Multi-Ingred Cream/Lotion/Oil/Oint (Mineral Oil/Petrolatum,White 106 Gm Tube) 1 appl TOPICAL TID PRN PRN Reason: Dry Skin Ondansetron HCl (Ondansetron Hcl 4 Mg/2 Ml Vial) 4 mg IVPUSH Q8H PRN PRN Reason: Nausea and Vomiting Pharmacy Consult (Consult Rx Perform Med Rec) 1 each MISCELLANE ONCE PRN PRN Reason: Consult order Home Medications Medication Instructions Recorded Confirmed Last Taken Type acetaminophen 325 mg tablet 325 mg PO TID PRN Pain 09/05/22 09/05/22 Unknown History amlodipine 2.5 mg tablet 2.5 mg PO DAILY 09/05/22 09/05/22 09/04/22 History azithromycin 250 mg tablet 250 mg PO DAILY 09/05/22 09/05/22 09/04/22 History bisacodyl 10 mg rectal suppository 10 mg [place] 1XD PRN Constipation 09/05/22 09/05/22 Unknown History (Dulcolax (bisacodyl)) ceftriaxone 1 gram solution for 1 g IM DAILY 09/05/22 09/05/22 09/04/22 History injection cholecalciferol (vitamin D3) 50 50 mcg PO DAILY 09/05/22 09/05/22 Unknown History mcg (2,000 unit) capsule (Vitamin D3) dexamethasone 2 mg tablet 5 mg PO 1XD PRN Shortness Of Breath 09/05/22 09/05/22 Unknown History emollient combination no.114 1 appl topical TID PRN Dry Skin 09/05/22 09/05/22 Unknown History magnesium hydroxide 400 mg/5 mL 2,400 mg PO DAILY PRN Constipation 09/05/22 09/05/22 Unknown History oral suspension (Milk of Magnesia) melatonin 3 mg tablet 3 mg PO BEDTIME PRN Insomnia 09/05/22 09/05/22 Unknown History sodium phosphates 19 gram-7 118 ml [place] DAILY PRN Constipation 09/05/22 09/05/22 Unknown History gram/118 mL enema (Fleet Enema) thiamine HCl (vitamin B1) 100 mg 100 mg PO DAILY 09/05/22 09/05/22 Unknown History tablet Physical Exam Vital Signs: Vital Signs: Last Vital Signs Temp 99.6 F 09/09/22 20:00 Pulse 77 09/09/22 20:00 Resp 16 09/09/22 20:00 BP 150/74 H 09/09/22 20:00 Pulse Ox 94 09/09/22 20:00 O2 Del Method 09/09/22 20:00 O2 Flow Rate 3 09/05/22 21:41 FiO2 96 09/07/22 19:18 BMI result Body Mass Index 16.8 Const: General: cooperative HEENT: Head: Yes normal to inspection Face and sinus: Yes normal facial exam Mouth: Normal oral and palatal mucosa present Teeth and gingiva: dentition normal Eyes: General: appearance normal, both eyes and all related structures Pupils: Equal, round and reactive pupils present Resp: Effort & Inspection: normal respiratory effort Cardio: Rate: regular rate Rhythm: regular rhythm GI: Palpation (GI): Soft to palpation and nontender : General: Yes no CVA tenderness Back/Spine/Pelvis: Back: no CVA tenderness Skin: General skin exam: no rashes or lesions noted Neuro: General: moves all extremities Cranial nerves: Yes Equal, round and reactive pupils present Extrem: General: Yes normal to inspection Psych: Appearance: grossly normal Results Labs CBC & Chem 7: 09/09/22 07:11 09/09/22 07:11 Labs: Short CBC 09/09/22 Range/Units 07:11 WBC 15.1 H (4.8-10.8) X10*3/uL Hgb 11.6 L (14.0-18.0) g/dl Hct 34.2 L (42.0-52.0) % Plt Count 394 (160-400) X10*3/uL BMP 09/09/22 07:11 Sodium 144 Potassium 3.4 Chloride 107 Carbon Dioxide 23 BUN 33 H Creatinine 0.96 Calcium 8.1 L Microbiology Microbiology Results: Microbiology 09/05/22 13:39 Blood - Venous Blood Culture - Final Staphylococcus aureus 09/05/22 13:39 Blood - Venous Blood Culture - Preliminary No growth after 48 hours. Assessment and Plan (1) Pneumonia: Status: Acute (2) Acute respiratory failure with hypoxia: Status: Acute He has staph aureus bacteremia. He has pneumonia as source likely He has COVID Plan 14 day IV antibiotics Pacer when blood culture negative for 48 hours.
[2022-09-09 23:58] VITALS: BP 169/76; PULSE 74; RESP 17; TEMP 36.7; O2SAT 96
[2022-09-10] MEDS: ceFAZolin Sodium/Dextrose,Iso 2 GM/50 ML PIGGYBACK IV ×3 (01:09→17:35)
[2022-09-10] MEDS: Heparin Sodium,Porcine 5,000 UNIT/ML VIAL 5000 UNIT SUBCUT ×2 (03:18→17:33)
[2022-09-10 04:00] VITALS: BP 151/69; PULSE 79; RESP 20; TEMP 36.3; O2SAT 94
[2022-09-10] MEDS: Dextrose 5 % and 0.45 % NaCl 1,000 ML 100 ML IVCONT (06:29)
[2022-09-10 07:49] LABS: Glucose, Whole Blood 98 mg/dL (60-115)
[2022-09-10 08:00] VITALS: BP 152/68; PULSE 74; RESP 19; TEMP 36.6; O2SAT 96
--- NOTE | 2022-09-10 09:10 | HO.PM.IMPN ---
Subjective Subjective Date of Service: 09/10/22 Interval History: cc: lethargy interval history:no complaints Cardiovascular Cardiovascular: Reports no additional cardiovascular complaints Respiratory Respiratory: Reports no additional respiratory complaints Physical Exam Vital Signs: Vital Signs: Last Vital Signs Temp 98 F 09/10/22 08:00 Pulse 74 09/10/22 08:00 Resp 19 09/10/22 08:00 BP 152/68 H 09/10/22 08:00 Pulse Ox 96 09/10/22 08:00 O2 Del Method 09/10/22 08:00 O2 Flow Rate 3 09/05/22 21:41 FiO2 96 09/07/22 19:18 BMI result Body Mass Index 16.8 Const: General: cooperative HEENT: Head: Yes normal to inspection Face and sinus: Yes normal facial exam Mouth: Normal oral and palatal mucosa present Teeth and gingiva: dentition normal Eyes: General: appearance normal, both eyes and all related structures Pupils: Equal, round and reactive pupils present Resp: Effort & Inspection: normal respiratory effort Cardio: Rate: regular rate Rhythm: regular rhythm GI: Palpation (GI): Soft to palpation and nontender : General: Yes no CVA tenderness Back/Spine/Pelvis: Back: no CVA tenderness Skin: General skin exam: no rashes or lesions noted Neuro: General: moves all extremities Cranial nerves: Yes Equal, round and reactive pupils present Extrem: General: Yes normal to inspection Psych: Appearance: grossly normal Objective Data Active Medications Acetaminophen (Acetaminophen 325 Mg Tablet) 650 mg PO Q6H PRN PRN Reason: Pain, Mild (Pain Scale 1-3) Last Admin: 09/08/22 23:51 Dose: 650 mg Documented By: KATHERYN Bisacodyl (Bisacodyl 10 Mg Supp.Rect) 10 mg [place] DAILY PRN PRN Reason: CONSTIPATION Dextrose (Dextrose 50 % 25 Gm/50 Ml Syringe) 25 gm IVPUSH Q15M PRN; Protocol PRN Reason: per Hypoglycemia Standing Ord. Glucose (Glucose Gel 15 Gm Gel..Gram.) 15 gm PO Q15M PRN; Protocol PRN Reason: per Hypoglycemia Standing Ord. Heparin Sodium (Porcine) (Heparin Sodium,Porcine 5,000 Unit/Ml Vial) 5,000 unit SUBCUT Q12H [facility] Last Admin: 09/10/22 03:18 Dose: 5,000 unit Documented By: KATHERYN Cefazolin Sodium/Dextrose (Ancef) 2 gm in 50 mls @ 100 mls/hr IV Q8H [facility] Last Infusion: 09/10/22 02:11 Dose: 0 mls/hr Documented By: KATHERYN Dextrose/Sodium Chloride (D51/2ns) 1,000 mls @ 80 mls/hr IVCONT .[id number] [facility] Last Admin: 09/10/22 06:29 Dose: 100 mls/hr Documented By: KATHERYN Insulin Human Lispro (Insulin Lispro 100 Unit/Ml 3 Ml Vial) 0 unit SUBCUT QIDACHS [facility]; Protocol Last Admin: 09/10/22 07:50 Dose: Not Given Documented By: JAVID Non-Admin Reason: No Insulin Coverage Multi-Ingred Cream/Lotion/Oil/Oint (Mineral Oil/Petrolatum,White 106 Gm Tube) 1 appl TOPICAL TID PRN PRN Reason: Dry Skin Ondansetron HCl (Ondansetron Hcl 4 Mg/2 Ml Vial) 4 mg IVPUSH Q8H PRN PRN Reason: Nausea and Vomiting Pharmacy Consult (Consult Rx Perform Med Rec) 1 each MISCELLANE ONCE PRN PRN Reason: Consult order Labs CBC & Chem 7: 09/09/22 07:11 09/09/22 07:11 Labs: Laboratory Results - last 24 hr 09/09/22 09/09/22 09/09/22 11:16 16:41 20:59 POC Glucose 105 106 99 09/10/22 07:44 POC Glucose 98 Assessment and Plan (1) Acute hypernatremia: Status: Acute Plan 87M with past medical history of advanced Alzheimer's dementia, hypertension, presented with fever, altered mental status Sepsis, metabolic encephalopathy, acute hypoxic respiratory failure secondary to COVID-19 with superimposed bacterial pneumonia and MSSA bacteremia ancef (2 week total) Follow-up cultures, ID appreciated Severe hypernatremia also contributing to metabolic encephalopathy likely due to COVID resolved with d5w, changed to maintence d51/2ns, monitor bradycardia improved, may not need pacer, would not place until culture clearance anyway Acute kidney injury resolved coccyx DTI local care dysphagia 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
[2022-09-10 11:14] LABS: Glucose, Whole Blood 104 mg/dL (60-115)
[2022-09-10 11:53] VITALS: BP 145/65; PULSE 80; RESP 18; TEMP 36.4; O2SAT 97
[2022-09-10 15:53] VITALS: BP 173/86; PULSE 73; RESP 17; TEMP 36.9; O2SAT 95
[2022-09-10 16:53] LABS: Glucose, Whole Blood 111 mg/dL (60-115)
[2022-09-10] MEDS: Dextrose 5 % and 0.45 % NaCl 1,000 ML 80 ML IVCONT (17:34)
--- NOTE | 2022-09-10 19:11 | PC.NURSE ---
Patients IV in right forearm infiltrated. IV removed. New IV placed to left upper arm with no issues.
[2022-09-10 19:45] LABS: Glucose, Whole Blood 92 mg/dL (60-115)
[2022-09-10 19:51] VITALS: BP 153/62; PULSE 87; RESP 19; TEMP 36.6; O2SAT 95
[2022-09-11] VITALS (7 sets, daily range): BP systolic 138–166; BP diastolic 54–93; PULSE 68–84; RESP 14–18; TEMP 36.3–37.8; O2SAT 91–98
[2022-09-11] MEDS: Heparin Sodium,Porcine 5,000 UNIT/ML VIAL 5000 UNIT SUBCUT ×2 (03:37→17:38)
[2022-09-11] MEDS: ceFAZolin Sodium/Dextrose,Iso 2 GM/50 ML PIGGYBACK IV ×3 (03:38→17:39)
[2022-09-11] MEDS: Dextrose 5 % and 0.45 % NaCl 1,000 ML 80 ML IVCONT (03:43)
[2022-09-11 06:38] LABS: Anion Gap 19 (12-20); Blood Urea Nitrogen 19 mg/dL (9-16); Calcium 7.6 mg/dL (8.4-10.2); Carbon Dioxide 20 mmol/L (22-29); Chloride 104 mmol/L (96-108); Creatinine Clr Calc Pharmacy 47.1; Estimated Glomerular Filt Rate > 60; Glucose Fasting 123 mg/dL (60-99); Sodium 139 mmol/L (135-145)
[2022-09-11 06:46] LABS: Hematocrit 29.2 % (42.0-52.0); Hemoglobin 10.2 g/dl (14.0-18.0); Mean Corpuscular HGB Conc 34.9 g/dl (31.0-36.0); Mean Corpuscular Hemoglobin 31.8 pg (27.0-33.0); Mean Platelet Volume 11.2 fL (9.4-12.4); Platelet Count 393 X10*3/uL (160-400); Red Blood Count 3.21 X10*6/uL (4.60-5.80); Red Cell Distribution Width 12.3 % (11.0-16.0); White Blood Count 14.4 X10*3/uL (4.8-10.8)
[2022-09-11 07:35] LABS: Glucose, Whole Blood 122 mg/dL (60-115)
--- NOTE | 2022-09-11 11:29 | MHC.SL.SWA ---
Speech Pathologist Impression: Oropharyngeal dysphagia Risk of Aspiration Due to: Lethargy Neurological Condition History of Pneumonia Reduced Cognition Dysphasia Diet Status: No Change Liquid Consistency and Strategies for Safe Swallow: Liquid Intake Recommendation: Thin Liquid Intake Strategies: Small Sips No Straws Solid Food Consistency: Dietary Recommendations: Pureed (NDD1) Additional Modifications to Solid Foods: Per [facility] paperwork, pt requires 1:1 assist feeding and can follow simple directions. Per confirmation phone call, [facility] staff reports pt takes meds crushed, puree solids, and thin liquids. PUREE (NDD1) with THIN liquids, Pills crushed in puree. Patient requires 1-1 feed w/ management of behaviors, aspiration precautions apply. Oral Medication Intake: Crushed with Puree Please contact the pharmacy regarding appropriate crushable or liquid drug formulations that are available whenever modified delivery is recommended. Compensatory Strategies and Precautions to be Taken for Safe Swallow: Sitting Upright (90 deg) No Straw Liquids from Cup Small Bites and Sips Alternate Liquids/Solids Rate of Ingestion Change Supervision While Eating and Drinking for Safe Swallow: Total Assistance (1:1) Foods to Avoid: Sticky or congealed purees. Swallowing Recommended Treatments: Compens. Strategy Educat. Recommendation for Speech: Inpatient Speech Therapy Bag Filler Clinican/Clinical Fellow: No Supervisory Statement: I have reviewed and agree with the student/clinical fellow's documentation: N/A Speech Language Pathologist: Eve Stevens M.A., CCC-CLAIMS CONFIGURATION ANALYST
[2022-09-11 11:42] LABS: Glucose, Whole Blood 128 mg/dL (60-115)
--- NOTE | 2022-09-11 12:04 | HO.PM.IMPN ---
Subjective Subjective Date of Service: 09/11/22 Interval History: cc: lethargy interval history:no complaints Cardiovascular Cardiovascular: Reports no additional cardiovascular complaints Respiratory Respiratory: Reports no additional respiratory complaints Physical Exam Vital Signs: Vital Signs: Last Vital Signs Temp 99.2 F 09/11/22 11:10 Pulse 82 09/11/22 11:10 Resp 18 09/11/22 11:10 BP 146/67 H 09/11/22 11:10 Pulse Ox 93 09/11/22 11:10 O2 Del Method 09/11/22 11:10 O2 Flow Rate 3 09/05/22 21:41 FiO2 96 09/07/22 19:18 BMI result Body Mass Index 16.8 Const: General: cooperative HEENT: Head: Yes normal to inspection Face and sinus: Yes normal facial exam Mouth: Normal oral and palatal mucosa present Teeth and gingiva: dentition normal Eyes: General: appearance normal, both eyes and all related structures Pupils: Equal, round and reactive pupils present Resp: Effort & Inspection: normal respiratory effort Cardio: Rate: regular rate Rhythm: regular rhythm GI: Palpation (GI): Soft to palpation and nontender : General: Yes no CVA tenderness Back/Spine/Pelvis: Back: no CVA tenderness Skin: General skin exam: no rashes or lesions noted Neuro: General: moves all extremities Cranial nerves: Yes Equal, round and reactive pupils present Extrem: General: Yes normal to inspection Psych: Appearance: grossly normal Objective Data Active Medications Acetaminophen (Acetaminophen 325 Mg Tablet) 650 mg PO Q6H PRN PRN Reason: Pain, Mild (Pain Scale 1-3) Last Admin: 09/08/22 23:51 Dose: 650 mg Documented By: KATHERYN Bisacodyl (Bisacodyl 10 Mg Supp.Rect) 10 mg NC DAILY PRN PRN Reason: CONSTIPATION Dextrose (Dextrose 50 % 25 Gm/50 Ml Syringe) 25 gm IVPUSH Q15M PRN; Protocol PRN Reason: per Hypoglycemia Standing Ord. Glucose (Glucose Gel 15 Gm Gel..Gram.) 15 gm PO Q15M PRN; Protocol PRN Reason: per Hypoglycemia Standing Ord. Heparin Sodium (Porcine) (Heparin Sodium,Porcine 5,000 Unit/Ml Vial) 5,000 unit SUBCUT Q12H [facility] Last Admin: 09/11/22 03:37 Dose: 5,000 unit Documented By: BETSY Cefazolin Sodium/Dextrose (Ancef) 2 gm in 50 mls @ 100 mls/hr IV Q8H [facility] Last Admin: 09/11/22 11:26 Dose: 100 mls/hr Documented By: ANDRE Dextrose/Sodium Chloride (D51/2ns) 1,000 mls @ 80 mls/hr IVCONT .[id number] [facility] Last Admin: 09/11/22 03:43 Dose: 80 mls/hr Documented By: BETSY Insulin Human Lispro (Insulin Lispro 100 Unit/Ml 3 Ml Vial) 0 unit SUBCUT QIDACHS [facility]; Protocol Last Admin: 09/11/22 07:39 Dose: Not Given Documented By: AUREA Non-Admin Reason: No Insulin Coverage Multi-Ingred Cream/Lotion/Oil/Oint (Mineral Oil/Petrolatum,White 106 Gm Tube) 1 appl TOPICAL TID PRN PRN Reason: Dry Skin Ondansetron HCl (Ondansetron Hcl 4 Mg/2 Ml Vial) 4 mg IVPUSH Q8H PRN PRN Reason: Nausea and Vomiting Pharmacy Consult (Consult Rx Perform Med Rec) 1 each MISCELLANE ONCE PRN PRN Reason: Consult order Labs CBC & Chem 7: 09/11/22 05:56 09/11/22 05:56 Labs: Laboratory Results - last 24 hr 09/10/22 09/10/22 09/11/22 16:46 19:42 05:56 MCV 91.0 MCH 31.8 MCHC 34.9 RDW 12.3 Plt Count 393 MPV 11.2 Absolute Nucleated RBC 0.000 Nucleated RBC % (auto) 0.0 Anion Gap Estim Creat Clear Calc Estimated GFR POC Glucose 111 92 Fasting Glucose Calcium 09/11/22 09/11/22 09/11/22 05:56 07:18 11:08 MCV MCH MCHC RDW Plt Count MPV Absolute Nucleated RBC Nucleated RBC % (auto) Anion Gap 19 Estim Creat Clear Calc 47.1 Estimated GFR > 60 POC Glucose 122 H 128 H Fasting Glucose 123 H Calcium 7.6 L D Microbiology Microbiology Results: Microbiology 09/09/22 07:11 Blood Culture - Preliminary Blood - Venous No growth after 48 hours. 09/09/22 07:11 Blood Culture - Preliminary Blood - Venous No growth after 48 hours. 09/05/22 13:39 Blood Culture - Final Blood - Venous No growth after 5 days. Assessment and Plan (1) Acute hypernatremia: Status: Acute Plan 87M with past medical history of advanced Alzheimer's dementia, hypertension, presented with fever, altered mental status Sepsis, metabolic encephalopathy, acute hypoxic respiratory failure secondary to COVID-19 with superimposed bacterial pneumonia and MSSA bacteremia ancef (2 week total), end sep 22, 2022 ID appreciated Severe hypernatremia also contributing to metabolic encephalopathy likely due to COVID will monitor off fluids to see if can maintain bradycardia improved, may not need pacer Acute kidney injury resolved coccyx DTI local care dysphagia 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
--- NOTE | 2022-09-11 14:27 | MHC.CLN ---
F/U PO INTAKE POOR DIET RX: PUREED-APPROPRIATE PT RECEIVING ENSURE TID TO INCREASE KCALS AND PROMOTE WOUND HEALING PROVIDES 1050KCALS, 60G PROTEIN MONITOR PO INTAKE AND WOUND HEALING
[2022-09-11 16:01] LABS: Glucose, Whole Blood 88 mg/dL (60-115)
[2022-09-12] MEDS: ceFAZolin Sodium/Dextrose,Iso 2 GM/50 ML PIGGYBACK IV ×3 (01:13→19:08)
[2022-09-12 04:00] VITALS: BP 141/76; PULSE 80; RESP 18; TEMP 36.7; O2SAT 94
[2022-09-12] MEDS: Heparin Sodium,Porcine 5,000 UNIT/ML VIAL 5000 UNIT SUBCUT ×2 (04:16→16:17)
[2022-09-12 07:18] LABS: Glucose, Whole Blood 92 mg/dL (60-115)
[2022-09-12 07:28] VITALS: BP 150/65; PULSE 67; RESP 17; TEMP 36.6; O2SAT 97
[2022-09-12 08:11] LABS: Hematocrit 30.9 % (42.0-52.0); Hemoglobin 10.7 g/dl (14.0-18.0); Mean Corpuscular HGB Conc 34.6 g/dl (31.0-36.0); Mean Corpuscular Hemoglobin 31.8 pg (27.0-33.0); Mean Platelet Volume 10.3 fL (9.4-12.4); Platelet Count 472 X10*3/uL (160-400); Red Blood Count 3.36 X10*6/uL (4.60-5.80); Red Cell Distribution Width 12.6 % (11.0-16.0); White Blood Count 12.8 X10*3/uL (4.8-10.8)
[2022-09-12 08:38] LABS: Anion Gap 15 (12-20); Blood Urea Nitrogen 17 mg/dL (9-16); Calcium 8.2 mg/dL (8.4-10.2); Carbon Dioxide 28 mmol/L (22-29); Chloride 102 mmol/L (96-108); Creatinine Clr Calc Pharmacy 48.3; Estimated Glomerular Filt Rate > 60; Glucose Fasting 84 mg/dL (60-99); Potassium 3.4 mmol/L (3.3-5.1); Sodium 142 mmol/L (135-145)
--- NOTE | 2022-09-12 10:53 | P.PNIM_ITS ---
Subjective Subjective Date of Service: 09/12/22 Interval History: cc: lethargy interval history:no complaints Cardiovascular Cardiovascular: Reports no additional cardiovascular complaints Respiratory Respiratory: Reports no additional respiratory complaints Physical Exam Vital Signs: Vital Signs: Last Vital Signs Temp 98 F 09/12/22 07:28 Pulse 67 09/12/22 07:28 Resp 17 09/12/22 07:28 BP 150/65 H 09/12/22 07:28 Pulse Ox 97 09/12/22 07:28 O2 Del Method 09/12/22 07:28 O2 Flow Rate 3 09/05/22 21:41 FiO2 96 09/07/22 19:18 BMI result Body Mass Index 16.8 Const: General: cooperative HEENT: Head: Yes normal to inspection Face and sinus: Yes normal facial ex am Mouth: Normal oral and palatal mucosa present Teeth and gingiva: dentition normal Eyes: General: appearance normal, both eyes and all related structures Pupils: Equal, round and reactive pupils present Resp: Effort & Inspection: normal respiratory effort Cardio: Rate: regular rate Rhythm: regular rhythm GI: Palpation (GI): Soft to palpation and nontender : General: Yes no CVA tenderness Back/Spine/Pelvis: Back: no CVA tenderness Skin: General skin exam: no rashes or lesions noted Neuro: General: moves all extremities Cranial nerves: Yes Equal, round and reactive pupils present Extrem: General: Yes normal to inspection Psych: Appearance: grossly normal Objective Data Active Medications Acetaminophen (Acetaminophen 325 Mg Tablet) 650 mg PO Q6H PRN PRN Reason: Pain, Mild (Pain Scale 1-3) Last Admin: 09/08/22 23:51 Dose: 650 mg Documented By: KATHERYN Bisacodyl (Bisacodyl 10 Mg Supp.Rect) 10 mg GA DAILY PRN PRN Reason: CONSTIPATION Dextrose (Dextrose 50 % 25 Gm/50 Ml Syringe) 25 gm IVPUSH Q15M PRN; Protocol PRN Reason: per Hypoglycemia Standing Ord. Heparin Sodium (Porcine) (Heparin Sodium,Porcine 5,000 Unit/Ml Vial) 5,000 unit SUBCUT Q12H [facility] Last Admin: 09/12/22 04:16 Dose: 5,000 unit Documented By: ROSALINALM Cefazolin Sodium/Dextrose (Ancef) 2 gm in 50 mls @ 100 mls/hr IV Q8H [facility] Last Infusion: 09/12/22 10:37 Dose: 0 mls/hr Documented By: LEIDY Multi-Ingred Cream/Lotion/Oil/Oint (Mineral Oil/Petrolatum,White 106 Gm Tube) 1 appl TOPICAL TID PRN PRN Reason: Dry Skin Ondansetron HCl (Ondansetron Hcl 4 Mg/2 Ml Vial) 4 mg IVPUSH Q8H PRN PRN Reason: Nausea and Vomiting Pharmacy Consult (Consult Rx Perform Med Rec) 1 each MISCELLANE ONCE PRN PRN Reason: Consult order Labs CBC & Chem 7: 09/12/22 07:54 09/12/22 07:54 Labs: Laboratory Results - last 24 hr 09/11/22 09/11/22 09/12/22 11:08 15:58 07:13 MCV MCH MCHC RDW Plt Count MPV Absolute Nucleated RBC Nucleated RBC % (auto) Anion Gap Estim Creat Clear Calc Estimated GFR POC Glucose 128 H 88 92 Fasting Glucose Calcium 09/12/22 09/12/22 07:54 07:54 MCV 92.0 MCH 31.8 MCHC 34.6 RDW 12.6 Plt Count 472 H MPV 10.3 Absolute Nucleated RBC 0.000 Nucleated RBC % (auto) 0.0 Anion Gap 15 Estim Creat Clear Calc 48.3 Estimated GFR > 60 POC Glucose Fasting Glucose 84 Calcium 8.2 L D Microbiology Microbiology Results: Microbiology 09/09/22 07:11 Blood Culture - Preliminary Blood - Venous No growth after 48 hours. 09/09/22 07:11 Blood Culture - Preliminary Blood - Venous No growth after 48 hours. Assessment and Plan (1) Acute hypernatremia: Status: Acute Plan 87M with past medical history of advanced Alzheimer's dementia, hypertension, presented with fever, altered mental status Sepsis, metabolic encephalopathy, acute hypoxic respiratory failure secondary to COVID-19 with superimposed bacterial pneumonia and MSSA bacteremia ancef (2 week total), end sep 22, 2022 ID appreciated picc line ordered Severe hypernatremia also contributing to metabolic encephalopathy likely due to COVID appears to maintaing off ivf bradycardia improved, may not need pacer Acute kidney injury resolved coccyx DTI and stage II left buttocks wound local care dysphagia PHOTO MACHINE OPERATOR appreciated NDD1 solids, thin liquids Hypertension will restart amlodipine DVT prophylaxis with heparin DNR/DNI reason for continued hospitalization: snf placement Quality Stroke Does the patient have a stroke diagnosis?: No VTE Prior VTE?: No VTE Risk Level:: Medical - moderate - high VTE Device Contraindication: Treatment Not Indicated VTE Drug Contraindication: N/A - Med Ordered
[2022-09-12 11:17] LABS: Glucose, Whole Blood 82 mg/dL (60-115)
[2022-09-12 11:21] VITALS: BP 153/69; PULSE 80; RESP 17; TEMP 36.9; O2SAT 96
[2022-09-12 15:33] VITALS: BP 181/85; PULSE 86; RESP 19; TEMP 37.6
--- NOTE | 2022-09-12 18:04 | HO.MIDLINE ---
Midline Insertion MIDLINE INSERTION Diagnosis: Bacteremia Indication: IV antibiotics needed Pertinent Labs: reviewed Technique: Using sterile technique including cap and mask, glove and drape, the right arm was prepped and draped in the usual sterile fashion of full barrier technique with CHG. Using ultrasound guidance, right basilic vein access was attempted once by Theo Jauregui RN, but unsuccessful. Right basilic vein access was obtained on first attempt by Chris Paul RN. A 20G X 10CM Non-PASV Midline was positioned. The procedure was performed in S272. Ultrasound was used to document vein patency and for needle entry. A formal ultrasound picture was recorded. Vascular Fine Arts Teacher has released the line for use and it is currently dressed with a StatLock, Tegaderm, and CHG disc. Verification has been performed for blood return and line patency. Arm Circumference: 24.5 CM Equipment: BARD PowerGlide ST Midline Catheter Type: [id number] Non-PASV Midline Lot #: [id number]
[2022-09-12 20:00] VITALS: BP 151/71; PULSE 81; RESP 19; TEMP 36.9
[2022-09-13] MEDS: ceFAZolin Sodium/Dextrose,Iso 2 GM/50 ML PIGGYBACK IV ×2 (02:50→10:31)
[2022-09-13 03:19] VITALS: BP 170/74; PULSE 76; RESP 20; TEMP 36.8; O2SAT 94
[2022-09-13] MEDS: Heparin Sodium,Porcine 5,000 UNIT/ML VIAL 5000 UNIT SUBCUT (03:49)
[2022-09-13 06:44] LABS: Hematocrit 32.2 % (42.0-52.0); Hemoglobin 10.8 g/dl (14.0-18.0); Mean Corpuscular HGB Conc 33.5 g/dl (31.0-36.0); Mean Corpuscular Hemoglobin 31.2 pg (27.0-33.0); Mean Corpuscular Volume 93.1 fL (80.0-98.0); Platelet Count 484 X10*3/uL (160-400); Red Blood Count 3.46 X10*6/uL (4.60-5.80); Red Cell Distribution Width 12.9 % (11.0-16.0); White Blood Count 15.7 X10*3/uL (4.8-10.8)
[2022-09-13 07:02] LABS: Blood Urea Nitrogen 20 mg/dL (9-16); Calcium 7.6 mg/dL (8.4-10.2); Estimated Glomerular Filt Rate > 60; Glucose Fasting 77 mg/dL (60-99)
[2022-09-13 07:15] LABS: Anion Gap 25 (12-20); Carbon Dioxide 17 mmol/L (22-29); Chloride 105 mmol/L (96-108); Potassium 3.7 mmol/L (3.3-5.1); Sodium 143 mmol/L (135-145)
[2022-09-13 07:20] VITALS: BP 157/79; PULSE 85; RESP 17; TEMP 36.9; O2SAT 95
[2022-09-13] MEDS: amLODIPine Besylate 2.5 MG TABLET PO (10:31)
--- NOTE | 2022-09-13 10:42 | MHC.SL.SWA ---
Addendum entered and electronically signed by Eve Stevens MA, CCC-INDUSTRIAL HYGIENE MANAGER 09/13/22 12:25: D.S. Original Note: Speech Pathologist Impression: Oropharyngeal dysphagia Risk of Aspiration Due to: Lethargy Neurological Condition History of Pneumonia Reduced Cognition Dysphasia Diet Status: No change, Per [facility] paperwork, pt requires 1:1 assist feeding and can follow simple directions. Per confirmation phone call, [facility] staff reports pt takes meds crushed, puree solids, and thin liquids. Liquid Consistency and Strategies for Safe Swallow: Liquid Intake Recommendation: Thin Liquid Intake Strategies: Small Sips No Straws Solid Food Consistency: Dietary Recommendations: Pureed (NDD1) PUREE (NDD1) with THIN liquids, Pills crushed in puree. Patient requires 1-1 feed w/ management of behaviors, aspiration precautions apply. Oral Medication Intake: Crushed with Puree Please contact the pharmacy regarding appropriate crushable or liquid drug formulations that are available whenever modified delivery is recommended. Compensatory Strategies and Precautions to be Taken for Safe Swallow: Sitting Upright (90 deg) No Straw Liquids from Cup Small Bites and Sips Alternate Liquids/Solids Rate of Ingestion Change Supervision While Eating and Drinking for Safe Swallow: Total Assistance (1:1) Foods to Avoid: Sticky or congealed purees. Swallowing Recommended Treatments: Compens. Strategy Educat. Recommendation for Speech: Further Testing Needed Inpatient Speech Therapy Per staff, pt accepted only a few bites at breakfast this morning. INDUSTRIAL HYGIENE MANAGER provided oral care attempted to clear lingual residue. Pt tolerated several sips of thin liquids by teaspoon and by cup sip with no overt clinical s/s of aspiration. With one trial of thin liquid via teaspoon, pt was observed to cough briefly shortly after swallow. Pt then tolerated 4 more teaspoons of thin liquid without s/s of aspiration. Pt tolerated applesauce with complete oral clearance and no s/s of aspiration. Pt demonstrated short bolus hold with puree solids and thin liquids. Upon palpation, laryngeal elevation WFL. Moisturizer put on pt's lips and mouth. Recommend pt continue with PUREE (NDD1) solids, THIN liquids, pills CRUSHED with puree. Pt should not be given PO if presenting in lethargic state. Ensure pt is awake, alert, and agreeable prior to any PO trials. Small sips and bites. Recommend full 1:1 assist feeding. Discontinue PO if pt presents as lethargic or if s/s of aspiration are observed. Recommend 1 f/u with INDUSTRIAL HYGIENE MANAGER. Meatcutter Clinican/Clinical Fellow: Yes: Ragini Schumacher M.A., -INDUSTRIAL HYGIENE MANAGER Supervisory Statement: I have reviewed and agree with the student/clinical fellow's documentation: N/A Speech Language Pathologist: Eve Stevens M.A., [facility]-INDUSTRIAL HYGIENE MANAGER
--- NOTE | 2022-09-13 11:25 | PM.DS ---
DS: Providers Provider Date of Service: 09/13/22 Date of admission: 09/05/22 15:50 Primary care physician: Parish Guzman MD Consults: 09/08/22 09:13 Consult to Cardiology Routine Consulting Provider: Marlo Demarco Reason for consultation: junctional high 30s, asymptomatic 09/08/22 09:17 Consult to Infectious Diseases Routine Consulting Provider: Iliana Dave Reason for consultation: mssa bacteremia DS: Diagnosis Discharge Diagnosis (1) Acute hypernatremia: Status: Acute (2) Pneumonia: Status: Acute (3) LICHA (acute kidney injury): Status: Acute (4) Aspiration pneumonia: Status: Acute (5) Hypernatremia: Status: Acute (6) Acute respiratory failure with hypoxia: Status: Acute (7) COVID-19 virus infection: Status: Acute (8) MSSA bacteremia: Status: Acute (9) Swallowing problem: Status: Acute DS: Summary Hospital Course Hospital Course: Admission note HPI An 87 years old male with PMH of advanced dementia, HTN, COPD, CKD stage 2 who presents to the hospital from nursing facility as a was noted to be febrile with evidence of hypoxia and dyspnea.? The patient tested positive for COVID 8 days ago and was noted to develop pneumonia subsequently.? Treated with IM ceftriaxone, p.o. azithromycin and dexamethasone with no significant improvement as his O2 saturation dropped down to 80s this morning.? EMS brought the patient to the hospital who is nonverbal and unable to provide any meaningful history. In the emergency he was noted to be hypernatremic with acute kidney injury, as elevated troponin and evidence of right middle and lower lobe infiltrate on chest x-ray.? Admitted for further evaluation and treatment. Hospital course The patient was primarily admitted to the hospital for evaluation of Sepsis, metabolic encephalopathy and acute hypoxic respiratory failure secondary to COVID-19 infection. Found to have superimposed bacterial pneumonia and MSSA bacteremia treated with IV antibiotics as the patient was evaluated by infectious disease specialist recommended total of 2 weeks of cefazolin as a PICC line was placed. Noted to have severe hypernatremia with acute kidney injury secondary to COVID 90 infection. Responded well to treatment with IV hydration and avoidance of nephrotoxic medications as the patient was weaned off the oxygen and kidney function improved back to baseline with resolution of elevated sodium. Noted to have bradycardia as part of sick sinus syndrome. Improved back to regular sinus rhythm as sepsis and bacteremia improved Has coccyx DTI and stage II left buttocks wound which was treated with local care Evaluated by speech therapy team for evidence of dysphagia with recommendation for NDD1 solids, thin liquids. Modified diet NDD 1 with Ensure t.i.d. Increase your water intake as tolerated Continue cefazolin until 09/22/2022. Time Spent with Patient Time attestation: Total time spent providing and/or coordinating discharge services: Discharge coordination time: Greater than 30 minutes Quality: Safe Use of Opioids Does Pt have an Active Cancer Diagnosis on the Problem List?: No Quality: Stroke Does the patient have a stroke diagnosis?: No Physical Exam Vital Signs: Vital Signs: Last Vital Signs Temp 98.5 F 09/13/22 07:20 Pulse 85 09/13/22 07:20 Resp 17 09/13/22 07:20 BP 157/79 H 09/13/22 07:20 Pulse Ox 95 09/13/22 07:20 O2 Del Method 09/13/22 07:20 O2 Flow Rate 3 09/05/22 21:41 FiO2 93 09/12/22 20:00 BMI result Body Mass Index 16.8 Const: Other: Constitutional : Alert, interactive with stimulation, not in distress Neck : Normal inspection, Supple Cardiovascular : RRR, no JVP, no lower extremity edema Respiratory : Decreased bilateral air entry, now no crackles, no wheezes Gastrointestinal: soft, lax, Normal bowel sounds, Non tender Skin : Warm, Dry Neurological : Alert , interactive with stimulation but overall confused, moving extremities DS: Data Data Completed and Pending Labs on day of discharge: Laboratory Results - last 24 hr 09/13/22 09/13/22 06:35 06:35 WBC 15.7 H RBC 3.46 L Hgb 10.8 L Hct 32.2 L MCV 93.1 MCH 31.2 MCHC 33.5 RDW 12.9 Plt Count 484 H MPV 10.0 Absolute Nucleated RBC 0.000 Nucleated RBC % (auto) 0.0 Sodium 143 Potassium 3.7 Chloride 105 Carbon Dioxide 17 L Anion Gap 25 H BUN 20 H Creatinine 0.82 Estim Creat Clear Calc 46.0 Estimated GFR > 60 Fasting Glucose 77 Calcium 7.6 L D Preliminary micro results at discharge 09/09/22 07:11 Blood Culture - Preliminary Blood - Venous No growth after 48 hours. 09/09/22 07:11 Blood Culture - Preliminary Blood - Venous No growth after 48 hours. Imaging Chest x-ray: Radiologist's impression: ITS Impressions Chest X-Ray 09/05/22 13:07 IMPRESSION: Right mid and lower lung infiltrates. Discharge Plan Discharge Anticipated Discharge Date/Time: 09/13/22 11:15 Patient Disposition: Xfer SNF Discharge Diagnosis: MSSA bacteremia COVID-19 infection Acute kidney injury with hypernatremia Referrals: Parish Guzman MD [Primary Care Provider] - 1 Week Discharge Medications: New cefazolin in dextrose (iso-os) 2 gram/50 mL Piggyback 50 ml IV Q8H Qty: 27 0RF Continued acetaminophen 325 mg Tablet 325 mg PO TID PRN (Reason: Pain) thiamine HCl (vitamin B1) 100 mg Tablet 100 mg PO DAILY amlodipine 2.5 mg Tablet 2.5 mg PO DAILY melatonin 3 mg Tablet 3 mg PO BEDTIME PRN (Reason: Insomnia) magnesium hydroxide [Milk of Magnesia] 400 mg/5 mL Suspension 2,400 mg PO DAILY PRN (Reason: Constipation) dexamethasone 2 mg Tablet 5 mg PO 1XD PRN (Reason: Shortness Of Breath) Rx Instructions: FOR 7 DAYS STARTING 09/04/22 bisacodyl [Dulcolax (bisacodyl)] 10 mg Suppository 10 mg LA 1XD PRN (Reason: Constipation) Rx Instructions: TO BE USED EVERY 3 DAYS IF NO BOWEL MOVEMENT Fleet Enema 19-7 gram/118 mL Enema 118 ml LA DAILY PRN (Reason: Constipation) Rx Instructions: TO BE USED EVERY 3 DAYS IF MILK OF MAGNESIA AND DULCOLAX ARE INEFFECTIVE cholecalciferol (vitamin D3) [Vitamin D3] 50 mcg (2,000 unit) Capsule 50 mcg PO DAILY emollient combination no.114 Cream 1 appl TOPICAL TID PRN (Reason: Dry Skin) Discontinued azithromycin 250 mg Tablet 250 mg PO DAILY Rx Instructions: start on day 2 of therapy (09/05/22) ceftriaxone 1 gram Recon Soln 1 g IM DAILY Rx Instructions: TAKE FOR 5 DAYS STARTING 09/04/22 Discharge Orders: Discharge Order (Routine); Ordered 09/13/22 Ordered By: Sabina Oakley Diet: Advance to usual diet Activity on Discharge: As tolerated Stand Alone Forms: Patient Portal Discharge page Care Plan Goals: Read below Health Concerns: Read below Plan of Treatment: Read below Assessment: You have presented to the hospital with fever and altered mentation found to have an evidence of pneumonia with MSSA bacteria growing in your blood treated with IV antibiotic as infectious disease evaluated you. You were also noticed to have COVID positive status with acute kidney injury and signs of dehydration responded well to IV fluid. Evaluated by speech therapy for difficulty swallowing with adjusting your diet. Modified diet NDD 1 with Ensure t.i.d. Increase your water intake as tolerated Continue cefazolin until 09/22/2022.
[2022-09-13 11:32] VITALS: BP 147/75; PULSE 75; RESP 18; TEMP 37.1; O2SAT 97
--- NOTE | 2022-09-13 12:10 | MHC.CM.PN ---
Addendum entered by Taty Neves 09/13/22 12:15: The 1st HCP was not reachable via phone. Second HCP , Glenda, the patients Sister, was notified of dc and IMM as well. She declined a copy of IMM. Original Note: IMM 09/13/22 Male 87 DX Hypoxia He is discharge today. He will return to [facility] for LTC via BLS. All discharge info has been sent to the facility. Transportation is booked for 2pm with [facility].
[2022-09-13 15:15] VITALS: BP 204/88; PULSE 79; RESP 15; TEMP 37.2; O2SAT 96
== END 2022-09-13 16:13 | disposition skilled nursing facility (03) | DRG 871 ==
LOC: HO.ED 14:27 → HO.EDOVER 16:02 → HO.IMC 19:20
PROVIDERS: Internal Medicine; Admitting Provider Student in an Organized Health Care Education/Training Program; Emergency Provider Emergency Medicine; PCP Family Medicine; Visit Provider Student in an Organized Health Care Education/Training Program
DX: A41.89 Other specified sepsis (principal); G93.41 Metabolic encephalopathy; J69.0 Pneumonitis due to inhalation of food and vomit; J96.01 Acute respiratory failure with hypoxia; U07.1 COVID-19; J15.9 Unspecified bacterial pneumonia; J12.82 Pneumonia due to coronavirus disease 2019; N17.9 Acute kidney failure, unspecified; E87.0 Hyperosmolality and hypernatremia; E44.0 Moderate protein-calorie malnutrition; Z68.1 Body mass index [BMI] 19.9 or less, adult; Z66 Do not resuscitate; I49.5 Sick sinus syndrome; R13.10 Dysphagia, unspecified; L89.322 Pressure ulcer of left buttock, stage 2; L89.156 Pressure-induced deep tissue damage of sacral region; I10 Essential (primary) hypertension; G30.9 Alzheimer's disease, unspecified; F02.80 Dementia in other diseases classified elsewhere, unspecified severity, without behavioral disturbance, psychotic disturbance, mood disturbance, and anxiety; E86.0 Dehydration; E78.5 Hyperlipidemia, unspecified; Z79.899 Other long term (current) drug therapy
CPT/HCPCS: 36410; 36415; 71045; 80048; 80076; 82947; 83605; 83880; 84484; 85025; 85027; 85610; 87040; 87077; 87186; 87205; 87635; 92526; 92610; 93005; 99285; C1751; J0690; J1956; J2543; J2920

== ENCOUNTER 2022-10-16 07:23 | Outpatient (REF) | payer MEDICARE, MEDICAID, SELFPAY ==
[2022-10-16 07:04] LABS: MANUAL DIFF FLAG NO
[2022-10-16 07:42] LABS: Basophils Absolute Auto 0.1 X10*3/uL (0.0-0.2); Basophils Percent Auto 0.7 % (0-2); Eosinophils Absolute Auto 0.1 X10*3/uL (0.0-0.4); Eosinophils Percent Auto 0.7 % (0-4); Hematocrit 28.1 % (42.0-52.0); Hemoglobin 9.3 g/dl (14.0-18.0); Imm Gran Abs Auto 0.04 X10*3/uL (0.00-0.03); Imm Gran Pct Auto 0.5 % (0.0-0.4); Lymphocytes Percent Auto 11.8 % (20-40); Mean Corpuscular HGB Conc 33.1 g/dl (31.0-36.0); Mean Corpuscular Hemoglobin 30.3 pg (27.0-33.0); Mean Corpuscular Volume 91.5 fL (80.0-98.0); Mean Platelet Volume 9.1 fL (9.4-12.4); Monocytes Absolute Auto 0.8 X10*3/uL (0.1-1.2); Monocytes Percent Auto 8.8 % (2-11); Neutrophils Absolute Auto 6.6 x10*3/uL (2.0-8.3); Neutrophils Percent Auto 77.5 % (45-73); Platelet Count 512 X10*3/uL (160-400); Red Blood Count 3.07 X10*6/uL (4.60-5.80); Red Cell Distribution Width 13.2 % (11.0-16.0); White Blood Count 8.6 X10*3/uL (4.8-10.8)
[2022-10-16 08:14] LABS: Anion Gap 15 (12-20); Blood Urea Nitrogen 17 mg/dL (9-16); Calcium 8.5 mg/dL (8.4-10.2); Carbon Dioxide 25 mmol/L (22-29); Chloride 101 mmol/L (96-108); Estimated Glomerular Filt Rate > 60; Glucose Random 93 mg/dL (60-115); Sodium 137 mmol/L (135-145)
== END 2022-10-16 07:24 | disposition home or self-care (01) ==
LOC: HO.MMNH2L 07:23
PROVIDERS: Visit Provider Family Medicine
DX: I10 Essential (primary) hypertension (principal)
CPT/HCPCS: 36415; 80048; 85025

== ENCOUNTER 2022-10-23 07:58 | Outpatient (REF) | payer SELFPAY ==
[2022-10-23 07:10] LABS: MANUAL DIFF FLAG NO
[2022-10-23 07:55] LABS: Basophils Absolute Auto 0.1 X10*3/uL (0.0-0.2); Basophils Percent Auto 0.9 % (0-2); Eosinophils Percent Auto 0.3 % (0-4); Hemoglobin 10.2 g/dl (14.0-18.0); Imm Gran Abs Auto 0.06 X10*3/uL (0.00-0.03); Imm Gran Pct Auto 0.5 % (0.0-0.4); Lymphocytes Absolute Auto 1.1 X10*3/uL (1.2-4.9); Lymphocytes Percent Auto 9.2 % (20-40); Mean Corpuscular HGB Conc 31.9 g/dl (31.0-36.0); Mean Corpuscular Volume 94.1 fL (80.0-98.0); Mean Platelet Volume 9.4 fL (9.4-12.4); Monocytes Absolute Auto 0.9 X10*3/uL (0.1-1.2); Neutrophils Absolute Auto 10.2 x10*3/uL (2.0-8.3); Neutrophils Percent Auto 82.1 % (45-73); Platelet Count 499 X10*3/uL (160-400); Red Cell Distribution Width 13.5 % (11.0-16.0); White Blood Count 12.4 X10*3/uL (4.8-10.8)
[2022-10-23 08:22] LABS: Anion Gap 19 (12-20); Blood Urea Nitrogen 28 mg/dL (9-16); Calcium 9.3 mg/dL (8.4-10.2); Carbon Dioxide 25 mmol/L (22-29); Chloride 106 mmol/L (96-108); Estimated Glomerular Filt Rate > 60; Glucose Random 70 mg/dL (60-115); Potassium 4.7 mmol/L (3.3-5.1); Sodium 145 mmol/L (135-145)
== END 2022-10-23 07:59 | disposition home or self-care (01) ==
LOC: HO.MMNH2L 07:58
PROVIDERS: Visit Provider Family Medicine
DX: I10 Essential (primary) hypertension (principal)
CPT/HCPCS: 36415; 80048; 85025

== ENCOUNTER 2022-12-11 07:07 | Outpatient (REF) | payer SELFPAY ==
[2022-12-11 07:40] LABS: Basophils Percent Auto 0.2 % (0-2); Eosinophils Percent Auto 0.1 % (0-4); Hematocrit 36.2 % (42.0-52.0); Hemoglobin 10.6 g/dl (14.0-18.0); Imm Gran Abs Auto 0.21 X10*3/uL (0.00-0.03); Imm Gran Pct Auto 0.8 % (0.0-0.4); Lymphocytes Percent Auto 4.1 % (20-40); MANUAL DIFF FLAG SCAN; Mean Corpuscular HGB Conc 29.3 g/dl (31.0-36.0); Mean Corpuscular Hemoglobin 27.9 pg (27.0-33.0); Mean Corpuscular Volume 95.3 fL (80.0-98.0); Monocytes Absolute Auto 0.9 X10*3/uL (0.1-1.2); Monocytes Percent Auto 3.5 % (2-11); Neutrophils Absolute Auto 23.2 x10*3/uL (2.0-8.3); Neutrophils Percent Auto 91.3 % (45-73); Platelet Count 551 X10*3/uL (160-400); Red Cell Distribution Width 15.9 % (11.0-16.0); SCAN SMEAR FLAG 1; White Blood Count 25.4 X10*3/uL (4.8-10.8)
[2022-12-11 08:57] LABS: SLIDE REVIEW VERIFIED
[2022-12-11 09:28] LABS: Anion Gap 23 (12-20); Blood Urea Nitrogen 84 mg/dL (9-16); Calcium 9.1 mg/dL (8.4-10.2); Carbon Dioxide 24 mmol/L (22-29); Chloride 130 mmol/L (96-108); Estimated Glomerular Filt Rate 45; Glucose Random 115 mg/dL (60-115); Potassium 5.3 mmol/L (3.3-5.1); Sodium 172 mmol/L (135-145)
== END 2022-12-11 07:08 | disposition home or self-care (01) ==
LOC: HO.MMNH2L 07:07
PROVIDERS: Visit Provider Family Medicine
DX: I10 Essential (primary) hypertension (principal)
CPT/HCPCS: 36415; 80048; 85025